=== PATIENT | female | born 2005 | race Two or more races ===

== ENCOUNTER 2024-10-24 14:58 | Outpatient (AMB) | payer MEDICAID, SELFPAY ==
[2024-10-24 15:13] VITALS: BP 119/80; PULSE 80; RESP 17; TEMP 36.2; O2SAT 97; BMI 35.6
--- NOTE | 2024-10-24 15:13 | OBCLNT_ITS ---
Vital Signs 10/24/24 15:13 Height 1.45 m Height Method Measured Weight 74.843 kg Weight Measurement Method Standing Scale BMI 35.6 BP 119/80 Blood Pressure Source Automatic Cuff Blood Pressure Location Right Upper Arm Position Sitting Respiration 17 Pulse 80 Pulse Source Monitor Temp 97.1 F Temp Source Temporal Artery Scan Pulse Oximetry (%) 97 Oxygen Delivery Method Room Air Allergies/Home Meds Allergies & Medications Allergies No Known Allergies Allergy (Verified 10/24/24 15:14) Medication Reconciliation vits no.126-ferrous fum 28 mg iron-folic acid 800 mcg tablet (Classic ) tab PO 10/24/24 [History Confirmed 10/24/24] Intake Visit Data Collection New Patient or Established: New Patient (never been to [facility]) Reason for Visit:: OBI Consent obtained for Telemed Visit: No Seen by Clinical Staff ONLY (RN/MA): No Part Time Receptionist Required: No Do You Feel Safe at Home: Yes Authorities Contacted: N/A PCP or OBGYN visit in last 3 months: No Hx Now: Yes Are you currently on any form of Control: No Pain Present Currently: No Pain Scale Used: Guthrie-Jha/Numerical Pain scale:: 0 Smoking Status Smoking Status: Never smoker Questionnaires Covid-19 Vaccine Questionnaire Has patient been vacinated for Covid-19 Have you been vacinated for Covid-19: No PHQ-9 PHQ-2 Over the last 2 weeks, how often have you been bothered by any of the following problems? 1. Little interest or pleasure in doing things: not at all 2. Feeling down, depressed, or hopeless: not at all Total score: 0 PHQ-9 3. Trouble falling or staying asleep, or sleeping too much: Not at all 4. Feeling tired or having little energy: Not at all 5. Poor appetite or overeating: Not at all 6. Feeling bad about yourself - or that you are a failure or have let yourself or your family down: Not at all 7. Trouble concentrating on things, such as reading the newspaper or watching television: Not at all 8. Moving or speaking so slowly that other people could have noticed? - Or the opposite - being so fidgety or restless that you have been moving around a lot more than usual: not at all 9. Thoughts that you would be better off or of hurting yourself in some way: Not at all Total score: 0 If you checked off any problems, how difficult have these problems made it for you to do your work, take care of things at home, or get along with other people?: not difficult at all Source: Developed by Drs. Irving Rothman, Flor Fair, Og Lee and colleagues, with an educational minh from [employer]. Social History Living Situation History Lives With: Children Housing: House Tobacco History Smoking Status: Never smoker Alcohol History Alcohol Intake: Never Domestic Abuse History Do You Feel Safe at Home: Yes History of Present Illness HPI Narrative 19-year-old 3 para 1 for OBI. Patient is a transfer of care from Dr. Calderon's at 33 weeks. Patient had wrong dates. Her last menstrual period March 24, 2025 and this gave due date December 30, 2024. Per [facility] ultrasound July 25 patient had a 19-week 6 ultrasound and this changed to due date to December 13, 2024. Patient denies social habits. Denies surgery. Denies chronic illness. Patient is O+, antibody screen negative, RPR nonreactive, rubella nonimmune, hepatitis B negative, hep C negative, HIV negative, GC and Chlamydia were negative. NIPT and AFP were negative. Carrier screen negative. 1 hour Glucola negative. Patient's hemoglobin was 12 and crit was 37. And her platelets 261. OB Initial Visit OB Flowsheet OB Flowsheet Initial Weight: Not Recorded Date -?-?-?-?-?-?-?-?-?-?-?-?- EGA Weight BP Alb Glu CTX Pres Fundal ht FHR Mov Dilation Station Effacement Hx Notes Visit Note 10/24/24 -?-?-?-?-?-?-?-?-?-?-?-?- 32w 6d 74.843 kg 119/80 absent cephalic 33 145 active 19-year-old 3 para 1 for OBI. Patient is a transfer from Dr. West's office with records. Her last period March 24, 2025. This gave a due date December 30, 2024. She had poor dates her first ultrasound was July 25, 2024 at 19 weeks 6 and this change her due date to December 13, 2024. Patient denies social habits. Denies surgery. Denies chronic illness. She denies leaking fluid denies bleeding denies contractions. Reports movement. Patient is O+, antibody screen negative, RPR nonreactive, rubella NI , hepatitis B negative, hep C negative, HIV negative, GC and Chlamydia were negative. Her 1 hour was negative. Her drug screen was normal. And her A1c was 5.3. NIPT AFP and carrier screens all negative. Sc hedule anatomy scan today. Patient declined Tdap. Discussed labor precautions. Kick counts twice daily. Increase fluids. Return in 2 weeks for GBS. And will do Pap 6 weeks Menstrual History Menstrual reliability: definite Flow: normal Menstrual regularity: regular Monthly: Yes Age at menarche: 11 On control pills at conception: No Date of positive home test: 05/06/24 OB History : 3 Para: 1 Hx # Pregnancies: 0 Hx Total # of Abortions (Spontaneous & Elective): 1 # of Living Children: 1 Delivery History 1st : Child's name: ARMAAN date: 07/13/19 sex: male Gestational age at delivery (weeks): 40 Delivery type: vaginal weight (lbs): 1814.369 g History of depression before or after : No Infection History & Risk Evaluation History of STDs: none HIV risk evaluation: low risk Hepatitis B risk evaluation: low risk Patient or partner has history of Genital Herpes: No Genetic Screening & History Genetic Screening/Teratology Counseling - Includes patient, baby's father, or anyone in either family with: 1. Patient's age 35 years or older as of estimated date of delivery: No 2. Thalassemia (Kuwaiti, Welsh, Mediterranean, or Background); MCV less than 80: No 3. Neural Tube Defect (Meningomyelocele, Spina Bifida, or Anencephaly): No 4. Congenital Heart Defect: No 5. Down Syndrome: No 6. Michael-Sachs (Ashkenazi Congregational, Cajun, Mauritian [place]): No 7. Germaine Disease (Ashkenazi Congregational): No 8. Familial Dysautonomia (Ashkenazi Congregational): No 9. Sickle Cell Disease or Trait (): No 10. Hemophilia or other blood disorders: No 11. Muscular Dystrophy: No 12. Cystic Fibrosis: No 13. [place]'s Chorea: No 14. Mental Retardation/Autism: No 15. Other inherited genetic or chromosomal disorder: No 16. Maternal Metabolic Disorder (EG,TYPE 1 Diabetes, PKU): No 17. Patient or baby's father had a child with defects not listed above: No 18. Recurrent loss or a stillbirth: No 19. Medications (including supplements, vitamins, herbs or otc drugs)/illicit/recreational drugs/alcohol since last menstrual period: No 20. Any other: No Infection History 1. Live with someone with TB or exposed to TB: No 2. Rash or viral illness since last menstrual period: No 3. Hepatitis B,C: No Other (see comments) Source: [employer] Review of Systems Review of Systems Systems Reviewed: All systems reviewed, normal except as documented Exam General Limitations: no limitations General Appearance: alert, in no apparent distress, comfortable, cooperative, healthy appearing, well developed and well groomed Head Head exam: atraumatic, normocephalic and normal inspection Chest Chest inspection: Present normal inspection and symmetric chest wall rise Resp Respiratory exam: Present normal lung sounds bilaterally Card Cardiovascular exam: Present regular rate, normal rhythm and normal heart sounds Abdominal Abdominal exam: Present soft and normal bowel sounds Psych Psychiatric exam: Present normal affect and normal mood Office Procedures OB Clinic LOC & Office Proc's Nursing/Assessment Patient Status: Initial/New Patient OB Clinic Nursing Assessment: Medication Reconciliation, Update PMH in EMR and Vital Signs OB Clinic Coordination of Care: Complex Care and Chronic Disease 1-5, Consent,records obtained, informed consent, Education Simp Pt/Fam and 4+ Authorizations needed Special Needs: Heart tones New Patient Charge New Patient Point Assignment: [id number] New Patient Point Charge: [employer]GE Level 4 ([id number]) Assessment & Plan Diagnosis / Problem List (1) Encounter for supervision of normal in multigravida in third trimester: Status: Acute Plan Pap 6 weeks . Schedule growth scan at maternal- medicine. Increase fluids. Continue prenatals. Discussed kick count twice a day. Reviewed labor precautions. Return in 2 weeks OB check. Additional Plan Follow Up: 2 Weeks (obc)
== END 2024-10-24 15:46 | disposition home or self-care (01) ==
LOC: HODSOBC 14:58
PROVIDERS: Supervising Provider Advanced Practice Midwife; Visit Provider Advanced Practice Midwife
DX: Z34.83 Encounter for supervision of other normal pregnancy, third trimester (principal); Z3A.32 32 weeks gestation of pregnancy; Z28.21 Immunization not carried out because of patient refusal
CPT/HCPCS: 99204; G0463

== ENCOUNTER 2024-11-10 13:29 | Outpatient (AMB) | payer MEDICAID, SELFPAY ==
[2024-11-10 14:05] VITALS: BP 124/72; PULSE 75; RESP 17; TEMP 36.3; O2SAT 98; BMI 36.6
--- NOTE | 2024-11-10 14:05 | AMB.OBVISIT ---
Vital Signs 11/10/24 14:05 Height 1.45 m Height Method Stated Weight 77.167 kg Weight Measurement Method Standing Scale BMI 36.6 BP 124/72 Blood Pressure Source Automatic Cuff Blood Pressure Location Right Upper Arm Position Sitting Respiration 17 Pulse 75 Pulse Source Monitor Temp 97.4 F Temp Source Temporal Artery Scan Pulse Oximetry (%) 98 Oxygen Delivery Method Room Air Allergies/Home Meds Allergies & Medications Allergies No Known Allergies Allergy (Verified 11/10/24 14:06) Medication Reconciliation vits no.126-ferrous fum 28 mg iron-folic acid 800 mcg tablet (Classic ) tab PO 10/24/24 [History Confirmed 11/10/24] Intake Visit Data Collection New Patient or Established: Established Patient (seen at [facility] within 3 years) Reason for Visit:: OBC 35W2D / GBS Seen by Clinical Staff ONLY (RN/MA): No Church Administrator Required: No Do You Feel Safe at Home: Yes Authorities Contacted: N/A PCP or OBGYN visit in last 3 months: Yes Date of Last PCP or OBGYN visit: 10/24/24 Hx Now: Yes Are you currently on any form of Control: No Pain Present Currently: No Pain Scale Used: Guthrie-Jha/Numerical Pain scale:: 0 Smoking Status Smoking Status: Never smoker Questionnaires Covid-19 Vaccine Questionnaire Has patient been vacinated for Covid-19 Have you been vacinated for Covid-19: No PHQ-9 PHQ-2 Over the last 2 weeks, how often have you been bothered by any of the following problems? 1. Little interest or pleasure in doing things: not at all 2. Feeling down, depressed, or hopeless: not at all Total score: 0 PHQ-9 3. Trouble falling or staying asleep, or sleeping too much: Not at all 4. Feeling tired or having little energy: Not at all 5. Poor appetite or overeating: Not at all 6. Feeling bad about yourself - or that you are a failure or have let yourself or your family down: Not at all 7. Trouble concentrating on things, such as reading the newspaper or watching television: Not at all 8. Moving or speaking so slowly that other people could have noticed? - Or the opposite - being so fidgety or restless that you have been moving around a lot more than usual: not at all 9. Thoughts that you would be better off or of hurting yourself in some way: Not at all Total score: 0 If you checked off any problems, how difficult have these problems made it for you to do your work, take care of things at home, or get along with other people?: not difficult at all Source: Developed by Drs. Irving Rothman, Flor Fair, Og Lee and colleagues, with an educational minh from [employer]. Depression screen completed yes Social History Living Situation History Marital Status: Lives With: Children Housing: House Tobacco History Smoking Status: Never smoker Second Hand Smoke Exposure: No Alcohol History Alcohol Intake: Never Domestic Abuse History Do You Feel Safe at Home: Yes Care OB Visit Log OB Flowsheet Initial Weight: Not Recorded Date <del>?</del> EGA Weight BP Alb Glu CTX Pres Fundal ht FHR Mov Dilation Station Effacement Hx Notes Visit Note 10/24/24 <del>?</del> 32w 6d 74.843 kg 119/80 absent cephalic 33 145 active 19-year-old 3 para 1 for OBI. Patient is a transfer from Dr. West's office with records. Her last period March 24, 2025. This gave a due date December 30, 2024. She had poor dates her first ultrasound was July 25, 2024 at 19 weeks 6 and this change her due date to December 13, 2024. Patient denies social habits. Denies surgery. Denies chronic illness. She denies leaking fluid denies bleeding denies contractions. Reports movement. Patient is O+, antibody screen negative, RPR nonreactive, rubella NI , hepatitis B negative, hep C negative, HIV negative, GC and Chlamydia were negative. Her 1 hour was negative. Her drug screen was normal. And her A1c was 5.3. NIPT AFP and carrier screens all negative. Schedule anatomy scan today. Patient declined Tdap. Discussed labor precautions. Kick counts twice daily. Increase fluids. Return in 2 weeks for GBS. And will do Pap 6 weeks 11/10/24 <del>?</del> 35w 2d 77.167 kg 124/72 absent cephalic 35 163 active No OB complaints. Fetus moving. Denies leaking, denies bleeding, denies contractions. GBS today. Discussed movement. Discussed kick count to be done twice a day. Increase fluids. Discussed signs symptoms of labor and ER precautions. Return in a week for OB check ANUM Calculator Estimated Delivery Date Method Current WG Current Estimate 12/13/24 Ultrasound #1 35w 2d Other Estimates 12/29/24 LMP (Certain) 33w 0d Notes Visit Date: 10/24/24 Last Updated by: Joanne Santiago CNM 19 yo . LMP 03/24/24. EDC12/30/24. OB sono; 07/25/24: 19w6. EDC: 12/13/24. wrong dates. O+,abs-, rpr;;nr, rub NI, hbsag-, hiv-, hc-, gc/ct-, 1hr gtt-, UT-, NIPT/AFP and carrier screen-, Office Procedures OB Clinic LOC & Office Proc's Nursing/Assessment Patient Status: Established Patient OB Clinic Nursing Assessment: Medication Reconciliation, Update PMH in EMR and Vital Signs OB Clinic Coordination of Care: Complex Care and Chronic Disease 1-5, Consent,records obtained, informed consent, Education Simp Pt/Fam, Lab and Imaging orders and Staff clarify orders Special Needs: Heart tones Miscellaneous Interventions: Culture Specimen Collection Established Patient Charge Established Patient Point Assignment: 145 Established Patient Point Charge: EP Level 4 (120-155) Assessment & Plan Diagnosis / Problem List (1) Encounter for supervision of high risk in third trimester, antepartum: Status: Acute Plan GBS today. Discussed labor precautions. Discussed ER precautions and parameters. Disc david kick count twice a day. Increase fluids. Return a week OB check Additional Plan Follow Up: 1 Week (obc)
== END 2024-11-10 14:45 | disposition home or self-care (01) ==
LOC: HODSOBC 13:29
PROVIDERS: Supervising Provider Advanced Practice Midwife; Visit Provider Advanced Practice Midwife
DX: O09.93 Supervision of high risk pregnancy, unspecified, third trimester (principal); Z3A.35 35 weeks gestation of pregnancy; Z36.85 Encounter for antenatal screening for Streptococcus B
CPT/HCPCS: 99214; G0463

== ENCOUNTER 2024-11-22 13:01 | Outpatient (AMB) | payer MEDICAID, SELFPAY ==
--- NOTE | 2024-11-22 13:20 | OBCLNT_ITS ---
Vital Signs 11/22/24 13:21 Height 1.45 m Height Method Measured Weight 78.131 kg Weight Measurement Method Standing Scale BMI 37.1 BP 123/80 Blood Pressure Source Automatic Cuff Blood Pressure Location Right Upper Arm Position Sitting Respiration 17 Pulse 86 Pulse Source Monitor Temp 97.7 F Temp Source Temporal Artery Scan Pulse Oximetry (%) 96 Oxygen Delivery Method Room Air Allergies/Home Meds Allergies & Medications Allergies No Known Allergies Allergy (Verified 11/22/24 13:21) Medication Reconciliation vits no.126-ferrous fum 28 mg iron-folic acid 800 mcg tablet (Classic ) tab PO 10/24/24 [History Confirmed 11/22/24] Intake Visit Data Collection New Patient or Established: Established Patient (seen at [facility] within 3 years) Reason for Visit:: OBC Consent obtained for Telemed Visit: No Seen by Clinical Staff ONLY (RN/MA): No Producer Director Required: No Do You Feel Safe at Home: Yes Authorities Contacted: N/A PCP or OBGYN visit in last 3 months: Yes Date of Last PCP or OBGYN visit: 11/10/24 Hx Now: Yes Are you currently on any form of Control: No Pain Present Currently: No Pain Scale Used: Guthrie-Jha/Numerical Pain scale:: 0 Smoking Status Smoking Status: Never smoker Questionnaires Covid-19 Vaccine Questionnaire Has patient been vacinated for Covid-19 Have you been vacinated for Covid-19: No PHQ-9 PHQ-2 Over the last 2 weeks, how often have you been bothered by any of the following problems? 1. Little interest or pleasure in doing things: not at all PHQ-9 8. Moving or speaking so slowly that other people could have noticed? - Or the opposite - being so fidgety or restless that you have been moving around a lot more than usual: not at all Source: Developed by Drs. Irving Rothman, Flor Fair, Og Lee and colleagues, with an educational minh from [employer]. Social History Living Situation History Lives With: Children Housing: House Tobacco History Smoking Status: Never smoker Second Hand Smoke Exposure: No Alcohol History Alcohol Intake: Never Domestic Abuse History Do You Feel Safe at Home: Yes Care OB Visit Log OB Flowsheet Initial Weight: Not Recorded Date -?-?-?-?-?-?-?-?-?-?-?-?- EGA Weight BP Alb Glu CTX Pres Fundal ht FHR Mov Dilation Station Effacement Hx Notes Visit Note 10/24/24 -?-?-?-?-?-?-?-?-?-?-?-?- 32w 6d 74.843 kg 119/80 absent cephalic 33 145 active 19-year-old 3 para 1 for OBI. Patient is a transfer from Dr. West's office with records. Her last period March 24, 2025. This gave a due date December 30, 2024. She had poor dates her first ultrasound was July 25, 2024 at 19 weeks 6 and this change her due date to December 13, 2024. Patient denies social habits. Denies surgery. Denies chronic illness. She denies leaking fluid denies blee ding denies contractions. Reports movement. Patient is O+, antibody screen negative, RPR nonreactive, rubella NI , hepatitis B negative, hep C negative, HIV negative, GC and Chlamydia were negative. Her 1 hour was negative. Her drug screen was normal. And her A1c was 5.3. NIPT AFP and carrier screens all negative. Sc hedule anatomy scan today. Patient declined Tdap. Discussed labor precautions. Kick counts twice daily. Increase fluids. Return in 2 weeks for GBS. And will do Pap 6 weeks 11/10/24 -?-?-?-?-?-?-?-?-?-?-?-?- 35w 2d 77.167 kg 124/72 absent cephalic 35 163 active No OB complaints. Fetus moving. Denies leaking, denies bleeding, denies contractions. GBS today. Discussed movement. Discussed kick count to be done twice a day. Increase fluids. Discussed signs symptoms of labor and ER precautions. Return in a week for OB check 11/22/24 -?-?-?-?-?-?-?-?-?-?-?-?- 37w 0d 78.131 kg 123/80 absent cephalic 36 156 active Doing well. No OB complaints. Reports good movement. Denies leaking, denies contractions, denies bleeding. Discussed posit sofie GBS and treatment. Discussed labor pop precautions. Discussed kick count twice a day. Increase fluids. Return in a week OB check ANUM Calculator Estimated Delivery Date Method Current WG Current Estimate 12/13/24 Ultrasound #1 37w 0d Other Estimates 12/29/24 LMP (Certain) 34w 5d Notes Visit Date: 11/22/24 Last Updated by: Joanne Santiago CNM GBS+on 11/22 Visit Date: 10/24/24 Last Updated by: Joanne Santiago CNM 19 yo . LMP 03/24/24. EDC12/30/24. OB sono; 07/25/24: 19w6. EDC: 12/13/24. wrong dates. O+,abs-, rpr;;nr, rub NI, hbsag-, hiv-, hc-, gc/ct-, 1hr gtt-, UT-, NIPT/AFP and carrier screen-, Office Procedures OB Clinic LOC & Office Proc's Nursing/Assessment Patient Status: Established Patient OB Clinic Nursing Assessment: Medication Reconciliation, Update PMH in EMR and V ital Signs OB Clinic Coordination of Care: Complex Care and Chronic Disease 1-5, Consent,records obtained, informed consent, 4+ Authorizations needed, Lab and Imaging orders and Results/Orders obtained Special Needs: Heart tones Established Patient Charge Established Patient Point Assignment: 135 Established Patient Point Charge: EP Level 4 (120-155) Assessment & Plan Diagnosis / Problem List (1) Encounter for supervision of high risk in third trimester, antepartum: Status: Acute Plan Discussed positive treat GBS and treatment. Discussed labor precautions kick count twice a day. Increase fluids. Return in a week OB check Additional Plan Follow Up: 1 Week (obc)
[2024-11-22 13:21] VITALS: BP 123/80; PULSE 86; RESP 17; TEMP 36.5; O2SAT 96; BMI 37.1
== END 2024-11-22 13:41 | disposition home or self-care (01) ==
LOC: HODSOBC 13:01
PROVIDERS: Supervising Provider Advanced Practice Midwife; Visit Provider Advanced Practice Midwife
DX: O09.893 Supervision of other high risk pregnancies, third trimester (principal); O99.820 Streptococcus B carrier state complicating pregnancy; Z3A.37 37 weeks gestation of pregnancy
CPT/HCPCS: 99214; G0463

== ENCOUNTER 2024-11-27 15:26 | Outpatient (AMB) | payer MEDICAID, SELFPAY ==
[2024-11-27 15:49] VITALS: BP 131/84; PULSE 66; RESP 14; TEMP 35.8; O2SAT 98; BMI 37.4
--- NOTE | 2024-11-27 15:49 | OBCLNT_ITS ---
Vital Signs 11/27/24 15:49 Height 1.45 m Height Method Stated Weight 78.698 kg Weight Measurement Method Standing Scale BMI 37.4 BP 131/84 H Blood Pressure Source Automatic Cuff Blood Pressure Location Left Upper Arm Position Sitting Respiration 14 Pulse 66 Pulse Source Monitor Temp 96.4 F L Temp Source Oral Pulse Oximetry (%) 98 Oxygen Delivery Method Room Air Allergies/Home Meds Allergies & Medications Allergies No Known Allergies Allergy (Verified 11/27/24 15:50) Medication Reconciliation vits no.126-ferrous fum 28 mg iron-folic acid 800 mcg tablet (Classic ) tab PO 10/24/24 [History Confirmed 11/27/24] Intake Visit Data Collection New Patient or Established: Established Patient (seen at [facility] within 3 years) Reason for Visit:: CARE Seen by Clinical Staff ONLY (RN/MA): No Silk Screen Painter Required: No Do You Feel Safe at Home: Yes Authorities Contacted: N/A PCP or OBGYN visit in last 3 months: Yes Hx Now: Yes Are you currently on any form of Control: No Pain Present Currently: No Pain Scale Used: Guthrie-Jha/Numerical Pain scale:: 0 Smoking Status Smoking Status: Never smoker Questionnaires Covid-19 Vaccine Questionnaire Has patient been vacinated for Covid-19 Have you been vacinated for Covid-19: No PHQ-9 PHQ-2 Over the last 2 weeks, how often have you been bothered by any of the following problems? 1. Little interest or pleasure in doing things: not at all 2. Feeling down, depressed, or hopeless: not at all Total score: 0 PHQ-9 3. Trouble falling or staying asleep, or sleeping too much: Not at all 4. Feeling tired or having little energy: Not at all 5. Poor appetite or overeating: Not at all 6. Feeling bad about yourself - or that you are a failure or have let yourself or your family down: Not at all 7. Trouble concentrating on things, such as reading the newspaper or watching television: Not at all 8. Moving or speaking so slowly that other people could have noticed? - Or the opposite - being so fidgety or restless that you have been moving around a lot more than usual: not at all 9. Thoughts that you would be better off or of hurting yourself in some way: Not at all Total score: 0 Source: Developed by Drs. Irving Rothman, Flor Fair, Og Lee and colleagues, with an educational minh from [employer]. Depression screen completed yes Social History Living Situation History Lives With: Children Housing: House Tobacco History Smoking Status: Never smoker Second Hand Smoke Exposure: No Alcohol History Alcohol Intake: Never Domestic Abuse History Do You Feel Safe at Home: Yes Care OB Visit Log OB Flowsheet Initial Weight: Not Recorded Date -?-?-?-?-?-?-?-?-?-?-?-?- EGA Weight BP Alb Glu CTX Pres Fundal ht FHR Mov Dilation Station Effacement Hx Notes Visit Note 10/24/24 -?-?-?-?-?-?-?-?-?-?-?-?- 32w 6d 74.843 kg 119/80 absent cephalic 33 145 active 19-year-old 3 para 1 for OBI. Patient is a transfer from Dr. West's office with records. Her last period March 24, 2025. This gave a due date December 30, 2024. She had poor dates her first ultrasound was July 25, 2024 at 19 weeks 6 and this change her due date to December 13, 2024. Patient denies social habits. Denies surgery. Denies chronic illness. She denies leaking fluid denies bleeding denies contractions. Reports movement. Patient is O+, antibody screen negative, RPR nonreactive, rubella NI , hepatitis B negative, hep C negative, HIV negative, GC and Chlamydia were negative. Her 1 hour was negative. Her drug screen was normal. And her A1c was 5.3. NIPT AFP and carrier screens all negative. Sc hedule anatomy scan today. Patient declined Tdap. Discussed labor precautions. Kick counts twice daily. Increase fluids. Return in 2 weeks for GBS. And will do Pap 6 weeks 11/10/24 -?-?-?-?-?-?-?-?-?-?-?-?- 35w 2d 77.167 kg 124/72 absent cephalic 35 163 active No OB complaints. Fetus moving. Denies leaking, denies bleeding, denies contractions. GBS today. Discussed movement. Discussed kick count to be done twice a day. Increase fluids. Discussed signs symptoms of labor and ER precautions. Return in a week for OB check 11/22/24 -?-?-?-?-?-?-?-?-?-?-?-?- 37w 0d 78.131 kg 123/80 absent cephalic 36 156 active Doing well. No OB complaints. Reports good movement. Denies leaking, denies contractions, denies bleeding. Discussed posit sofie GBS and treatment. Discussed labor pop precautions. Discussed kick count twice a day. Increase fluids. Return in a week OB check 11/27/24 -?-?-?-?-?-?-?-?-?-?-?-?- 37w 5d 78.698 kg 131/84 occasional cephalic 37 140 active Denies PIH complaints. Reports good movement. Denies leaking, denies bleeding, increased pressure and occasional contraction, ua dip neg for protien,blood, nitrites Discussed PIH si gns and symptoms. Discussed kick count twice a day. Increase fluids. No salt. Patient to labor and delivery for PIH workup and return in a week for OB check ANUM Calculator Estimated Delivery Date Method Current WG Current Estimate 12/13/24 Ultrasound #1 37w 5d Other Estimates 12/29/24 LMP (Certain) 35w 3d 12/14/24 Ultrasound #2 37w 4d Notes Visit Date: 11/27/24 Last Updated by: Joanne Santiago CNM sono 10/09/24: 30w4: edc: 12/14/24 Visit Date: 11/22/24 Last Updated by: Joanne Santiago CNM GBS+on 11/22 Visit Date: 10/24/24 Last Updated by: Joanne Santiago CNM 19 yo . LMP 03/24/24. EDC12/30/24. OB sono; 07/25/24: 19w6. EDC: 12/13/24. wrong dates. O+,abs-, rpr;;nr, rub NI, hbsag-, hiv-, hc-, gc/ct-, 1hr gtt-, UT-, NIPT/AFP and carrier screen-, Office Procedures OB Clinic LOC & Office Proc's Nursing/Assessment Patient Status: Established Patient OB Clinic Nursing Assessment: Medication Reconciliation, Update PMH in EMR and Vital Signs OB Clinic Coordination of Care: Complex Care and Chronic Disease 1-5, Consent,records obtained, informed consent, Education Simp Pt/Fam, 1 Ins Authorization, Lab and Imaging orders, Results/Orders obtained and Staff clarify orders Special Needs: Heart tones Miscellaneous Interventions: Blood/Urine Collection Established Patient Charge Established Patient Point Assignment: 180 Established Patient Point Charge: EP Level 5 (160-above) Assessment & Plan Diagnosis / Problem List (1) Encounter for supervision of high risk in third trimester, antepartum: Status: Acute Plan Discussed PIH signs and symptoms. Discussed labor precautions and kick count. Reviewed signs symptoms of preeclampsia with patient. Patient to labor and delivery for PIH workup return in a week OB check Additional Plan Follow Up: 1 Week (obc)
== END 2024-11-27 16:20 | disposition home or self-care (01) ==
LOC: HODSOBC 15:26
PROVIDERS: Supervising Provider Advanced Practice Midwife; Visit Provider Advanced Practice Midwife
DX: O09.93 Supervision of high risk pregnancy, unspecified, third trimester (principal); Z3A.37 37 weeks gestation of pregnancy
CPT/HCPCS: 99214; 99215; G0463

== ENCOUNTER 2024-11-27 16:59 | Outpatient (CLI) | payer MEDICAID, SELFPAY ==
[2024-11-27] VITALS (12 sets, daily range): BP systolic 105–135; BP diastolic 62–89; PULSE 53–85; RESP 18–99; TEMP 37.1; O2SAT 98–99; BMI 33.7
--- NOTE | 2024-11-27 17:07 | XR_ITS ---
Examination: Biophysical profile, ultrasound Date and time of exam: November 27, 2024, 1728 hours INDICATIONS: -induced hypertension today Technique: Multiple transabdominal sonographic images of the pelvis abdomen obtained. Attention is directed to the breathing movement, gross body movement, amniotic fluid volume and tone. Findings: Amniotic fluid index 15.2 cm Total biophysical profile is 8 of 8. breathing movement is 2. Gross body movement is 2. tone is 2. Qualitative amniotic fluid volume is 2 Impression: Biophysical profile is 8 of 8.
[2024-11-27 19:00] LABS: Basophils # (Auto) 0.0 Thou/mm3 (0.0-0.2); Basophils % (Auto) 0 % (0-2.5); Eosinophils # (Auto) 0.1 Thou/mm3 (0.0-0.5); Eosinophils % (Auto) 1 % (0-10); Hematocrit 37.0 % (36.0-46.0); Hemoglobin 12.6 g/dL (12.0-16.0); Immature Granulocytes Auto 0.05 Thou/mm3 (0.00-0.00); Lymphocytes # (Auto) 2.0 Thou/mm3 (1.0-4.8); Lymphocytes % (Auto) 19 % (10-50); Mean Corpuscular HGB Conc 34.1 g/dl (31.0-37.0); Mean Corpuscular Hemoglobin 28.1 pg (25.0-35.0); Mean Corpuscular Volume 82 fL (80-100); Monocytes # (Auto) 0.6 Thou/mm3 (0.0-0.8); Monocytes % (Auto) 5 % (0-12); Neutrophils # (Auto) 7.9 Thou/mm3 (1.8-7.7); Neutrophils % (Auto) 75 % (37-80); Nucleated Red Blood Cell # 0.00 Thou/mm3 (0.00-0.00); Nucleated Red Blood Cell % 0 /100 WBC (0); Platelet Count 218 Thou/mm3 (140-440); RDW Standard Deviation 38.8 fL (36.4-46.3); Red Blood Count 4.49 Miln/mm3 (4.00-5.20); White Blood Count 10.6 Thou/mm3 (3.6-11.0)
[2024-11-27 19:01] LABS: Collection Type, Urine Clean Catch
[2024-11-27 19:05] LABS: Bilirubin,Urine Negative (Negative); Blood,Urine Negative (Negative); Clarity,Urine Clear (Clear/Hazy); Color,Urine Yellow (Lt Yel-Yel); Glucose, Urine Negative (Negative); Ketones,Urine Negative (Negative); Leukocyte Esterase,Urine Negative (Negative); Nitrite,Urine Negative (Negative); PH,Urine 6.0 (5.0-7.0); Protein,Urine Negative (Neg - Trace); RBC,Urine 1 /hpf (0-3); Specific Gravity,Urine 1.019 (1.001-1.035); Squamous Epithelial Cell,Urine 5 /hpf (0-5); Urobilinogen,Urine Negative mg/dL (0.0-1.0); WBC,Urine 1 /hpf (0-5)
[2024-11-27 19:18] LABS: INR 0.9 (0.9-1.3); Partial Thromboplastin Time 26.2 Seconds (22.0-36.0); Prothrombin Time 10.3 Seconds (9.0-12.2)
[2024-11-27 19:44] LABS: Fibrinogen 693 mg/dL (175-375)
[2024-11-27 19:49] LABS: Alanine Aminotransferase 20 U/L (10-49); Albumin, Serum 4.1 gm/dL (3.5-5.0); Albumin/Globulin Ratio 1.5 (1.2-2.2); Alkaline Phosphatase 218 U/L (46-116); Anion Gap 12 (7-16); Aspartate Amino Transferase 76 U/L (0-34); BUN/Creatinine Ratio 13 Ratio (12-20); Bilirubin,Total 0.4 mg/dL (0.3-1.2); Blood Urea Nitrogen 8 mg/dL (9-23); Calcium 9.4 mg/dL (8.3-10.6); Calcium (Corrected) 9.4 mg/dL (8.5-10.1); Carbon Dioxide 20.9 mMol/L (20.0-31.0); Chloride 104 mMol/L (98-107); Creatinine (Component) 0.6 mg/dL (0.6-1.3); Estimated Creatinine Clearance 138.0 mL/min (>60); Globulin 2.7 gm/dL (2.3-3.5); Glucose 73 mg/dL (74-106); LDH (Lactate Dehydrogenase) 221 U/L (120-246); Osmolality,Calculated 271 (275-295); Potassium 4.4 mMol/L (3.4-5.1); Sodium 137 mMol/L (136-145); Total Protein 6.8 gm/dL (5.7-8.2); Uric Acid 5.6 mg/dL (3.1-7.8); eGFR > 60 See Note
== END 2024-11-27 20:19 | disposition home or self-care (01) ==
LOC: CNST 17:01 → S4SX 17:01
PROVIDERS: Advanced Practice Midwife; Referring Provider Obstetrics & Gynecology; Visit Provider Obstetrics & Gynecology
DX: Z34.83 Encounter for supervision of other normal pregnancy, third trimester (principal); Z36.89 Encounter for other specified antenatal screening; Z3A.37 37 weeks gestation of pregnancy
CPT/HCPCS: 36415; 59025; 76819; 80053; 81001; 83615; 84550; 85025; 85384; 85610; 85730

== ENCOUNTER 2024-11-29 18:39 | Observation (INO) | payer MEDICAID, SELFPAY ==
[2024-11-29] VITALS (16 sets, daily range): BP systolic 0–143; BP diastolic 0–97; PULSE 53–75; RESP 16–99; TEMP 37.1; BMI 36.6
--- NOTE | 2024-11-29 18:39 | XR_ITS ---
Examination: Biophysical profile, ultrasound Date and time of exam: November 29, 2024, 1859 hours INDICATIONS: -induced hypertension today Technique: Multiple transabdominal sonographic images of the pelvis abdomen obtained. Attention is directed to the breathing movement, gross body movement, amniotic fluid volume and tone. Findings: Amniotic fluid index 12.7 cm Total biophysical profile is 8 of 8. breathing movement is 2. Gross body movement is 2. tone is 2. Qualitative amniotic fluid volume is 2 Impression: Biophysical profile is 8 of 8.
--- NOTE | 2024-11-29 18:40 | XR_ITS ---
Examination: Complete OB ultrasound greater than 14 weeks Date and time of exam: November 29, 2024, 1839 hours INDICATIONS: -induced hypertension today Findings: Viable intrauterine single fetus with single amniotic sac presentation cephalic Cardiac motion 133 BPM Placenta anterior grade 3 Umbilical cord insertion seen. Amniotic fluid index 15.6 cm spine maternal right Cervix 3.7 cm Ovaries obscured by bowel gas. Composite estimated gestational age based on BPD, head circumference, abdominal circumference, femur length is 34 weeks 4 days Estimated weight 2402 g. Survey of intracranial anatomy, spinal anatomy, abdominal anatomy, four-chamber heart performed with no abnormalities identified. Impression: Viable intrauterine gestation cephalic presentation.
[2024-11-29 19:54] LABS: Collection Type, Urine Clean Catch; RBC,Urine 0 /hpf (0-3); WBC,Urine 0 /hpf (0-5)
[2024-11-29 20:13] LABS: Basophils # (Auto) 0.0 Thou/mm3 (0.0-0.2); Basophils % (Auto) 0 % (0-2.5); Eosinophils # (Auto) 0.1 Thou/mm3 (0.0-0.5); Eosinophils % (Auto) 1 % (0-10); Hematocrit 35.1 % (36.0-46.0); Hemoglobin 12.0 g/dL (12.0-16.0); Immature Granulocytes Auto 0.06 Thou/mm3 (0.00-0.00); Lymphocytes # (Auto) 1.9 Thou/mm3 (1.0-4.8); Lymphocytes % (Auto) 20 % (10-50); Mean Corpuscular HGB Conc 34.2 g/dl (31.0-37.0); Mean Corpuscular Hemoglobin 28.0 pg (25.0-35.0); Mean Corpuscular Volume 82 fL (80-100); Monocytes # (Auto) 0.6 Thou/mm3 (0.0-0.8); Monocytes % (Auto) 7 % (0-12); Neutrophils # (Auto) 6.8 Thou/mm3 (1.8-7.7); Neutrophils % (Auto) 72 % (37-80); Nucleated Red Blood Cell # 0.00 Thou/mm3 (0.00-0.00); Nucleated Red Blood Cell % 0 /100 WBC (0); Platelet Count 210 Thou/mm3 (140-440); RDW Standard Deviation 38.4 fL (36.4-46.3); Red Blood Count 4.29 Miln/mm3 (4.00-5.20); White Blood Count 9.5 Thou/mm3 (3.6-11.0)
[2024-11-29 20:16] LABS: Alanine Aminotransferase 19 U/L (10-49); Albumin, Serum 3.8 gm/dL (3.5-5.0); Albumin/Globulin Ratio 1.5 (1.2-2.2); Alkaline Phosphatase 225 U/L (46-116); Anion Gap 11 (7-16); Aspartate Amino Transferase 74 U/L (0-34); BUN/Creatinine Ratio 15 Ratio (12-20); Bilirubin,Total 0.3 mg/dL (0.3-1.2); Blood Urea Nitrogen 9 mg/dL (9-23); Calcium 9.2 mg/dL (8.3-10.6); Calcium (Corrected) 9.4 mg/dL (8.5-10.1); Carbon Dioxide 21.5 mMol/L (20.0-31.0); Chloride 106 mMol/L (98-107); Creatinine (Component) 0.6 mg/dL (0.6-1.3); Estimated Creatinine Clearance 131.8 mL/min (>60); Globulin 2.6 gm/dL (2.3-3.5); Glucose 111 mg/dL (74-106); LDH (Lactate Dehydrogenase) 182 U/L (120-246); Osmolality,Calculated 275 (275-295); Potassium 4.0 mMol/L (3.4-5.1); Sodium 138 mMol/L (136-145); Total Protein 6.4 gm/dL (5.7-8.2); Uric Acid 5.1 mg/dL (3.1-7.8); eGFR > 60 See Note
[2024-11-29 20:30] LABS: Bacteria,Urine Rare; Bilirubin,Urine Negative (Negative); Blood,Urine Negative (Negative); Clarity,Urine Clear (Clear/Hazy); Color,Urine Yellow (Lt Yel-Yel); Glucose, Urine Negative (Negative); Ketones,Urine Negative (Negative); Leukocyte Esterase,Urine Negative (Negative); Nitrite,Urine Negative (Negative); PH,Urine 6.0 (5.0-7.0); Protein,Urine Negative (Neg - Trace); Specific Gravity,Urine 1.021 (1.001-1.035); Squamous Epithelial Cell,Urine 5 /hpf (0-5); Urobilinogen,Urine Negative mg/dL (0.0-1.0)
[2024-11-29 20:36] LABS: Fibrinogen 589 mg/dL (175-375); INR 0.9 (0.9-1.3); Partial Thromboplastin Time 26.0 Seconds (22.0-36.0); Prothrombin Time 10.2 Seconds (9.0-12.2)
== END 2024-11-29 23:05 | disposition home or self-care (01) ==
LOC: S4S1 20:43 → S4SX 20:43
PROVIDERS: Admitting Provider Advanced Practice Midwife; Referring Provider Advanced Practice Midwife; Visit Provider Advanced Practice Midwife
DX: O16.3 Unspecified maternal hypertension, third trimester (principal); Z3A.34 34 weeks gestation of pregnancy
CPT/HCPCS: 36415; 59025; 59899; 76805; 76819; 80053; 81001; 83615; 84550; 85025; 85384; 85610; 85730

== ENCOUNTER 2024-12-05 15:45 | Outpatient (AMB) | payer MEDICAID, SELFPAY ==
[2024-12-05 15:43] VITALS: BP 124/83; PULSE 67; RESP 16; TEMP 36.7; O2SAT 97; BMI 33.8
--- NOTE | 2024-12-05 15:43 | OBCLNT_ITS ---
Vital Signs 12/05/24 15:43 Height 1.52 m Height Method Stated Weight 78.642 kg Weight Measurement Method Standing Scale BMI 33.8 BP 124/83 Blood Pressure Source Automatic Cuff Blood Pressure Location Left Upper Arm Position Sitting Respiration 16 Pulse 67 Pulse Source Monitor Temp 98.1 F Temp Source Oral Pulse Oximetry (%) 97 Oxygen Delivery Method Room Air Allergies/Home Meds Allergies & Medications Allergies No Known Allergies Allergy (Verified 12/05/24 15:55) Medication Reconciliation vits no.126-ferrous fum 28 mg iron-folic acid 800 mcg tablet (Classic ) 1 tab PO .QD 10/24/24 [History Confirmed 12/05/24] Intake Visit Data Collection New Patient or Established: Established Patient (seen at [facility] within 3 years) Reason for Visit:: CARE Seen by Clinical Staff ONLY (RN/MA): No Motor Builder 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 1. Little interest or pleasure in doing things: not at all 2. Feeling down, depressed, or hopeless: not at all Total score: 0 PHQ-9 3. Trouble falling or staying asleep, or sleeping too much: Not at all 4. Feeling tired or having little energy: Not at all 5. Poor appetite or overeating: Not at all 6. Feeling bad about yourself - or that you are a failure or have let yourself or your family down: Not at all 7. Trouble concentrating on things, such as reading the newspaper or watching television: Not at all 8. Moving or speaking so slowly that other people could have noticed? - Or the opposite - being so fidgety or restless that you have been moving around a lot more than usual: not at all 9. Thoughts that you would be better off or of hurting yourself in some way: Not at all Total score: 0 Source: Developed by Drs. Irving Rothman, Flor Fair, Og Lee and colleagues, with an educational minh from [employer]. Depression screen completed yes Social History Living Situation History Lives With: Children Housing: House Tobacco History Smoking Status: Never smoker Second Hand Smoke Exposure: No Alcohol History Alcohol Intake: Never Domestic Abuse History Do You Feel Safe at Home: Yes Care OB Visit Log OB Flowsheet Initial Weight: Not Recorded Date -?-?-?-?-?-?-?-?-?-?-?-?- EGA Weight BP Alb Glu CTX Pres Fundal ht FHR Mov Dilation Station Effacement Hx Notes Visit Note 10/24/24 -?-?-?-?-?-?-?-?-?-?-?-?- 32w 6d 74.843 kg 119/80 absent cephalic 33 145 active 19-year-old 3 para 1 for OBI. Patient is a transfer from Dr. West's office with records. Her last period March 24, 2025. This gave a due date December 30, 2024. She had poor dates her first ultrasound was July 25, 2024 at 19 weeks 6 and this change her due date to December 13, 2024. Patient denies social habits. Denies surgery. Denies chronic illness. She denies leaking fluid denies bleeding denies contractions. Reports movement. Patient is O+, antibody screen negative, RPR nonreactive, rubella NI , hepatitis B negative, hep C negative, HIV negative, GC and Chlamydia were negative. Her 1 hour was negative. Her drug screen was normal. And her A1c was 5.3. NIPT AFP and carrier screens all negative. Sc hedule anatomy scan today. Patient declined Tdap. Discussed labor precautions. Kick counts twice daily. Increase fluids. Return in 2 weeks for GBS. And will do Pap 6 weeks 11/10/24 -?-?-?-?-?-?-?-?-?-?-?-?- 35w 2d 77.167 kg 124/72 absent cephalic 35 163 active No OB complaints. Fetus moving. Denies leaking, denies bleeding, denies contractions. GBS today. Discussed movement. Discussed kick count to be done twice a day. Increase fluids. Discussed signs symptoms of labor and ER precautions. Return in a week for OB check 11/22/24 -?-?-?-?-?-?-?-?-?-?-?-?- 37w 0d 78.131 kg 123/80 absent cephalic 36 156 active Doing well. No OB complaints. Reports good movement. Denies leaking, denies contractions, denies bleeding. Discussed posit sofie GBS and treatment. Discussed labor pop precautions. Discussed kick count twice a day. Increase fluids. Return in a week OB check 11/27/24 -?-?-?-?-?-?-?-?-?-?-?-?- 37w 5d 78.698 kg 131/84 occasional cephalic 37 140 active Denies PIH complaints. Reports good movement. Denies leaking, denies bleeding, increased pressure and occasional contraction, ua dip neg for protien,blood, nitrites Discussed PIH si gns and symptoms. Discussed kick count twice a day. Increase fluids. No salt. Patient to labor and delivery for PIH workup and return in a week for OB check 12/05/24 -?-?-?-?-?-?-?-?-?-?-?-?- 38w 6d 78.642 kg 124/83 occasional cephalic 38 130 active Occasional contraction. Increased pressure. Reports good movement. Denies leaking or bleeding. Patient is GBS positive. Discussed GBS positive. Discussed labor precautions and kick count. Increase fluids. Continue prenatals. Return a week OB check ANUM Calculator Estimated Delivery Date Method Current WG Current Estimate 12/13/24 Ultrasound #1 38w 6d Other Estimates 12/29/24 LMP (Certain) 36w 4d 12/14/24 Ultrasound #2 38w 5d Notes Visit Date: 11/27/24 Last Updated by: Joanne Santiago CNM sono 10/09/24: 30w4: edc: 12/14/24 Visit Date: 11/22/24 Last Updated by: Joanne Santiago CNM GBS+on 11/22 Visit Date: 10/24/24 Last Updated by: Joanne Santiago CNM 19 yo . LMP 03/24/24. EDC12/30/24. OB sono; 07/25/24: 19w6. EDC: 12/13/24. wrong dates. O+,abs-, rpr;;nr, rub NI, hbsag-, hiv-, hc-, gc/ct-, 1hr gtt-, UT-, NIPT/AFP and carrier screen-, Office Procedures OB Clinic LOC & Office Proc's Nursing/Assessment Patient Status: Established Patient OB Clinic Nursing Assessment: Medication Reconciliation, Update PMH in EMR and Vital Signs OB Clinic Coordination of Care: Complex Care and Chronic Disease 1-5, Consent,records obtained, informed consent, Education Simp Pt/Fam, Lab and Imaging orders, Results/Orders obtained and Staff clarify orders Special Needs: Heart tones Established Patient Charge Established Patient Point Assignment: 135 Established Patient Point Charge: EP Level 4 (120-155) Assessment & Plan Diagnosis / Problem List (1) Encounter for supervision of high risk in third trimester, antepartum: Status: Acute Plan discuss labor precaution, fkc bif, discuss danger s/s and ER precaution, rtc 1 week onc Additional Plan Follow Up: 1 Week (obc)
== END 2024-12-05 16:08 | disposition home or self-care (01) ==
PROVIDERS: Supervising Provider Advanced Practice Midwife; Visit Provider Advanced Practice Midwife
DX: O09.893 Supervision of other high risk pregnancies, third trimester (principal); O99.820 Streptococcus B carrier state complicating pregnancy; Z3A.38 38 weeks gestation of pregnancy
CPT/HCPCS: 99214; G0463

== ENCOUNTER 2024-12-18 09:04 | Outpatient (AMB) | payer MEDICAID, SELFPAY ==
[2024-12-18 09:09] VITALS: BP 131/84; PULSE 78; RESP 16; TEMP 36.2; O2SAT 98; BMI 34.6
--- NOTE | 2024-12-18 09:09 | OBCLNT_ITS ---
Vital Signs 12/18/24 09:09 Height 1.52 m Height Method Stated Weight 80.002 kg Weight Measurement Method Standing Scale BMI 34.6 BP 131/84 H Blood Pressure Source Automatic Cuff Blood Pressure Location Left Upper Arm Position Sitting Respiration 16 Pulse 78 Pulse Source Monitor Temp 97.2 F Temp Source Oral Pulse Oximetry (%) 98 Oxygen Delivery Method Room Air Allergies/Home Meds Allergies & Medications Allergies No Known Allergies Allergy (Verified 12/18/24 09:10) Medication Reconciliation vits no.126-ferrous fum 28 mg iron-folic acid 800 mcg tablet (Classic ) 1 tab PO .QD 10/24/24 [History Confirmed 12/18/24] Intake Visit Data Collection New Patient or Established: Established Patient (seen at [facility] within 3 years) Reason for Visit:: OBC WEEKLY 40 WEEKS Seen by Clinical Staff ONLY (RN/MA): No Floor Coverings 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 1. Little interest or pleasure in doing things: not at all 2. Feeling down, depressed, or hopeless: not at all Total score: 0 PHQ-9 3. Trouble falling or staying asleep, or sleeping too much: Not at all 4. Feeling tired or having little energy: Not at all 5. Poor appetite or overeating: Not at all 6. Feeling bad about yourself - or that you are a failure or have let yourself or your family down: Not at all 7. Trouble concentrating on things, such as reading the newspaper or watching television: Not at all 8. Moving or speaking so slowly that other people could have noticed? - Or the opposite - being so fidgety or restless that you have been moving around a lot more than usual: not at all 9. Thoughts that you would be better off or of hurting yourself in some way: Not at all Total score: 0 If you checked off any problems, how difficult have these problems made it for you to do your work, take care of things at home, or get along with other people?: not difficult at all Source: Developed by Drs. Irving Rothman, Flor Fair, Og Lee and colleagues, with an educational minh from [employer]. Depression screen completed yes Social History Living Situation History Marital Status: Single Lives With: Children Housing: House Tobacco History Smoking Status: Never smoker Second Hand Smoke Exposure: No Alcohol History Alcohol Intake: Never Domestic Abuse History Do You Feel Safe at Home: Yes Care OB Visit Log OB Flowsheet Initial Weight: Not Recorded Date -?-?-?-?-?-?-?-?-?-?-?-?- EGA Weight BP Alb Glu CTX Pres Fundal ht FHR Mov Dilation Station Effacement Hx Notes Visit Note 10/24/24 -?-?-?-?-?-?-?-?-?-?-?-?- 32w 6d 74.843 kg 119/80 absent cephalic 33 145 active 19-year-old 3 para 1 for OBI. Patient is a transfer from Dr. West's office with records. Her last period March 24, 2025. This gave a due date December 30, 2024. She had poor dates her first ultrasound was July 25, 2024 at 19 weeks 6 and this change her due date to December 13, 2024. Patient denies social habits. Denies surgery. Denies chronic illness. She denies leaking fluid denies bleeding denies contractions. Reports movement. Patient is O+, antibody screen negative, RPR nonreactive, rubella NI , hepatitis B negative, hep C negative, HIV negative, GC and Chlamydia were negative. Her 1 hour was negative. Her drug screen was normal. And her A1c was 5.3. NIPT AFP and carrier screens all negative. Sc hedule anatomy scan today. Patient declined Tdap. Discussed labor precautions. Kick counts twice daily. Increase fluids. Return in 2 weeks for GBS. And will do Pap 6 weeks 11/10/24 -?-?-?-?-?-?-?-?-?-?-?-?- 35w 2d 77.167 kg 124/72 absent cephalic 35 163 active No OB complaints. Fetus moving. Denies leaking, denies bleeding, denies contractions. GBS today. Discussed movement. Discussed kick count to be done twice a day. Increase fluids. Discussed signs symptoms of labor and ER precautions. Return in a week for OB check 11/22/24 -?-?-?-?-?-?-?-?-?-?-?-?- 37w 0d 78.131 kg 123/80 absent cephalic 36 156 active Doing well. No OB complaints. Reports good movement. Denies leaking, denies contractions, denies bleeding. Discussed posit sofie GBS and treatment. Discussed labor pop precautions. Discussed kick count twice a day. Increase fluids. Return in a week OB check 11/27/24 -?-?-?-?-?-?-?-?-?-?-?-?- 37w 5d 78.698 kg 131/84 occasional cephalic 37 140 active Denies PIH complaints. Reports good movement. Denies leaking, denies bleeding, increased pressure and occasional contraction, ua dip neg for protien,blood, nitrites Discussed PIH si gns and symptoms. Discussed kick count twice a day. Increase fluids. No salt. Patient to labor and delivery for PIH workup and return in a week for OB check 12/05/24 -?-?-?-?-?-?-?-?-?-?-?-?- 38w 6d 78.642 kg 124/83 occasional cephalic 38 130 active Occasional contraction. Increased pressure. Reports good movement. Denies leaking or bleeding. Patient is GBS positive. Discussed GBS positive. Discussed labor precautions and kick count. Increase fluids. Continue prenatals. Return a week OB check 12/18/24 -?-?-?-?-?-?-?-?-?-?-?-?- 40w 5d 80.002 kg 131/84 occasional cephalic 39 130 active Occasional contractions. Increased pressure. Denies leaking fluid. Mom reports good movement. Patient would like to have induction labor Discussed kick count twice a day. Reviewed labor precautions and signs symptoms of labor. Patient was sent to labor and delivery for NST BPP and complete OB today and I will stacey edule her for induction. Reviewed induction with patient ANUM Calculator Estimated Delivery Date Method Current WG Current Estimate 12/13/24 Ultrasound #1 40w 5d Other Estimates 12/29/24 LMP (Certain) 38w 3d 12/14/24 Ultrasound #2 40w 4d Notes Visit Date: 11/27/24 Last Updated by: Joanne Santiago CNM sono 10/09/24: 30w4: edc: 12/14/24 Visit Date: 11/22/24 Last Updated by: Joanne Santiago CNM GBS+on 11/22 Visit Date: 10/24/24 Last Updated by: Joanne Santiago CNM 19 yo . LMP 03/24/24. EDC12/30/24. OB sono; 07/25/24: 19w6. EDC: 12/13/24. wrong dates. O+,abs-, rpr;;nr, rub NI, hbsag-, hiv-, hc-, gc/ct-, 1hr gtt-, UT-, NIPT/AFP and carrier screen-, Office Procedures OB Clinic LOC & Office Proc's Nursing/Assessment Patient Status: Established Patient OB Clinic Nursing Assessment: Medication Reconciliation, Update PMH in EMR and Vital Signs OB Clinic Coordination of Care: Education Complex Pt/Fam, Consent,records obtained, informed consent, Lab and Imaging orders and Staff clarify orders Special Needs: Heart tones Established Patient Charge Established Patient Point Assignment: 110 Established Patient Point Charge: EP Level 3 (80-115) Assessment & Plan Diagnosis / Problem List (1) Encounter for supervision of high risk in third trimester, antepartum: Status: Acute Plan Patient scheduled for induction for today. Patient was sent to labor and delivery for NST BPP and complete OB. If staffing allows keep patient in induced. Discussed kick count twice a day and danger signs symptoms. Additional Plan Follow Up: 1 Week (OBC)
== END 2024-12-18 09:53 | disposition home or self-care (01) ==
LOC: HODSOBC 09:04
PROVIDERS: Supervising Provider Advanced Practice Midwife; Visit Provider Advanced Practice Midwife
DX: O09.893 Supervision of other high risk pregnancies, third trimester (principal); O48.0 Post-term pregnancy; Z3A.40 40 weeks gestation of pregnancy
CPT/HCPCS: 99213; G0463

== ENCOUNTER 2024-12-18 14:58 | Inpatient (IN) | payer MEDICAID, SELFPAY ==
[2024-12-18] VITALS (76 sets, daily range): BP systolic 110–144; BP diastolic 68–94; PULSE 55–94; RESP 18–97; TEMP 36.7–36.9; O2SAT 97–100; BMI 34.7
--- NOTE | 2024-12-18 13:06 | XR_ITS ---
Examination: Complete OB ultrasound greater than 14 weeks Date and time of exam: December 18, 2024 1334 hours INDICATIONS: -induced hypertension diagnosis Findings: Viable intrauterine single fetus with single amniotic sac presentation cephalic Cardiac motion 152 BPM Placenta anterior grade 3 Umbilical cord insertion 3 vessel seen Amniotic fluid index 5.7 cm Cervix 4.2 cm Ovaries obscured by bowel gas. Composite estimated gestational age based on BPD, head circumference, abdominal circumference, femur length is 36 weeks 0 days Estimated weight 2783 g. Survey of intracranial anatomy, spinal anatomy, abdominal anatomy, four-chamber heart performed with no abnormalities identified. Impression: Viable intrauterine gestation cephalic presentation.
--- NOTE | 2024-12-18 13:06 | XR_ITS ---
Examination: Biophysical profile, ultrasound Date and time of exam: December 18, 2024 1348 hours INDICATIONS: -induced hypertension today Technique: Multiple transabdominal sonographic images of the pelvis abdomen obtained. Attention is directed to the breathing movement, gross body movement, amniotic fluid volume and tone. Findings: Amniotic fluid index 6.1 cm Total biophysical profile is 8 of 8. breathing movement is 2. Gross body movement is 2. tone is 2. Qualitative amniotic fluid volume is 2 Impression: Biophysical profile is 8 of 8.
[2024-12-18 14:03] LABS: Basophils # (Auto) 0.0 Thou/mm3 (0.0-0.2); Basophils % (Auto) 0 % (0-2.5); Eosinophils # (Auto) 0.0 Thou/mm3 (0.0-0.5); Eosinophils % (Auto) 0 % (0-10); Hematocrit 34.9 % (36.0-46.0); Hemoglobin 11.9 g/dL (12.0-16.0); Immature Granulocytes Auto 0.06 Thou/mm3 (0.00-0.00); Lymphocytes # (Auto) 1.6 Thou/mm3 (1.0-4.8); Lymphocytes % (Auto) 17 % (10-50); Mean Corpuscular HGB Conc 34.1 g/dl (31.0-37.0); Mean Corpuscular Hemoglobin 28.3 pg (25.0-35.0); Mean Corpuscular Volume 83 fL (80-100); Monocytes # (Auto) 0.5 Thou/mm3 (0.0-0.8); Monocytes % (Auto) 6 % (0-12); Neutrophils # (Auto) 6.8 Thou/mm3 (1.8-7.7); Neutrophils % (Auto) 76 % (37-80); Nucleated Red Blood Cell # 0.00 Thou/mm3 (0.00-0.00); Nucleated Red Blood Cell % 0 /100 WBC (0); Platelet Count 187 Thou/mm3 (140-440); RDW Standard Deviation 41.7 fL (36.4-46.3); Red Blood Count 4.20 Miln/mm3 (4.00-5.20); White Blood Count 8.9 Thou/mm3 (3.6-11.0)
[2024-12-18 14:25] LABS: Alanine Aminotransferase 24 U/L (10-49); Albumin, Serum 3.8 gm/dL (3.5-5.0); Albumin/Globulin Ratio 1.8 (1.2-2.2); Alkaline Phosphatase 249 U/L (46-116); Anion Gap 12 (7-16); Aspartate Amino Transferase 99 U/L (0-34); BUN/Creatinine Ratio 9 Ratio (12-20); Bilirubin,Total 0.3 mg/dL (0.3-1.2); Blood Urea Nitrogen 7 mg/dL (9-23); Calcium 9.2 mg/dL (8.3-10.6); Calcium (Corrected) 9.4 mg/dL (8.5-10.1); Carbon Dioxide 22.4 mMol/L (20.0-31.0); Chloride 104 mMol/L (98-107); Creatinine (Component) 0.8 mg/dL (0.6-1.3); Estimated Creatinine Clearance 104.7 mL/min (>60); Globulin 2.1 gm/dL (2.3-3.5); Glucose 106 mg/dL (74-106); LDH (Lactate Dehydrogenase) 209 U/L (120-246); Osmolality,Calculated 273 (275-295); Potassium 4.1 mMol/L (3.4-5.1); Sodium 138 mMol/L (136-145); Total Protein 5.9 gm/dL (5.7-8.2); Uric Acid 6.1 mg/dL (3.1-7.8); eGFR > 60 See Note
[2024-12-18 14:58] LABS: Collection Type, Urine Clean Catch
[2024-12-18 15:00] LABS: Fibrinogen 576 mg/dL (175-375); INR 0.9 (0.9-1.3); Partial Thromboplastin Time 25.2 Seconds (22.0-36.0); Prothrombin Time 9.9 Seconds (9.0-12.2)
[2024-12-18 15:15] LABS: Bacteria,Urine Rare; Bilirubin,Urine Negative (Negative); Blood,Urine 1+ (Negative); Clarity,Urine Clear (Clear/Hazy); Color,Urine Yellow (Lt Yel-Yel); Glucose, Urine Negative (Negative); Ketones,Urine Negative (Negative); Leukocyte Esterase,Urine Positive (Negative); Nitrite,Urine Negative (Negative); PH,Urine 6.5 (5.0-7.0); Protein,Urine Trace (Neg - Trace); RBC,Urine 1 /hpf (0-3); Specific Gravity,Urine 1.019 (1.001-1.035); Squamous Epithelial Cell,Urine 3 /hpf (0-5); Urobilinogen,Urine 2.0 mg/dL (0.0-1.0); WBC,Urine 5 /hpf (0-5)
[2024-12-18 15:19] LABS: Creatinine,Random Urine 122 mg/dL (30-125); Protein Total, Random Urine 35 mg/dL (1-14)
[2024-12-18 16:52] LABS: Basophils # (Auto) 0.0 Thou/mm3 (0.0-0.2); Basophils % (Auto) 0 % (0-2.5); Eosinophils # (Auto) 0.0 Thou/mm3 (0.0-0.5); Eosinophils % (Auto) 0 % (0-10); Hematocrit 35.9 % (36.0-46.0); Hemoglobin 12.4 g/dL (12.0-16.0); Immature Granulocytes Auto 0.08 Thou/mm3 (0.00-0.00); Lymphocytes # (Auto) 2.0 Thou/mm3 (1.0-4.8); Lymphocytes % (Auto) 19 % (10-50); Mean Corpuscular HGB Conc 34.5 g/dl (31.0-37.0); Mean Corpuscular Hemoglobin 28.7 pg (25.0-35.0); Mean Corpuscular Volume 83 fL (80-100); Monocytes # (Auto) 0.7 Thou/mm3 (0.0-0.8); Monocytes % (Auto) 6 % (0-12); Neutrophils # (Auto) 7.8 Thou/mm3 (1.8-7.7); Neutrophils % (Auto) 74 % (37-80); Nucleated Red Blood Cell # 0.00 Thou/mm3 (0.00-0.00); Nucleated Red Blood Cell % 0 /100 WBC (0); Platelet Count 188 Thou/mm3 (140-440); RDW Standard Deviation 41.5 fL (36.4-46.3); Red Blood Count 4.32 Miln/mm3 (4.00-5.20); White Blood Count 10.6 Thou/mm3 (3.6-11.0)
[2024-12-18] MEDS: RINGERS LACTATED 1000 ML 1,000 ML 100 ML IV (16:59)
[2024-12-18] MEDS: Ampicillin Inj 2,000 MG in SODIUM CHLORIDE 0.9% (POP) 100 ML 200 MG IV (17:01)
[2024-12-18 17:30] LABS: Syphilis Nonreactive (Nonreactive)
[2024-12-18] MEDS: Ampicillin Inj 1,000 MG in SODIUM CHLORIDE 0.9% (Popper) 50 ML 50 MG IV (20:51)
[2024-12-18] MEDS: fentaNYL CIT INJ 50 mCg/ML AMP 2ML 100 MCG IVP (20:51)
[2024-12-19] VITALS (90 sets, daily range): BP systolic 103–191; BP diastolic 56–93; PULSE 54–90; RESP 16–20; TEMP 36.7–37.2; O2SAT 84–100
[2024-12-19] MEDS: Ampicillin Inj 1,000 MG in SODIUM CHLORIDE 0.9% (Popper) 50 ML 50 MG IV (01:36)
[2024-12-19] MEDS: RINGERS LACTATED 1000 ML 1,000 ML 100 ML IV (01:39)
[2024-12-19] MEDS: fentaNYL CIT INJ 50 mCg/ML AMP 2ML 100 MCG IVP (02:02)
--- NOTE | 2024-12-19 02:32 | PD.LDHP ---
Documentation for date of: 12/19/24 OB Labor/Induct. HPI History of Present Illness Chief complaint: induction : 3 Para: 1 Term pregnancies: 1 pregnancies: 0 Living children: 1 History of Abortions: Spontaneous and Elective: 1 History of Vaginal deliveries: 1 History of sections: No History of : No Date of last menstrual period: 03/24/25 ANUM: 12/13/24 Gestational Age (weeks): 40 Gestational Age (days): 5 Gestational age based on last menstrual period: -13 Indication for induction: post dates History of present illness: 19-year-old healthy 3 para 1 admit to labor and delivery for induction of labor. Patient has been followed Living [facility] with this . And was transferred care to [facility] OB clinic at 35 weeks with records. Patient denies any existence of chronic medical problems. Denies social habits. Denies surgery. Last. March 24, 2024. This gave due date December 30, 2024. Patient has history of irregular periods and poor dates. First ultrasound July 25, 2024 patient was 19 weeks 6 and this changed to EDC to December 13, 2024. She also had a 30-week ultrasound to confirm dates. Patient so far had not had his problems with . O+, antibody screen negative, RPR nonreactive, rubella immune, hepatitis B negative, HIV negative, hep C negative, GC and Chlamydia were negative. Her 1 hour was normal. NIPT AFP and carrier screens all negative. Denies leaking, bleeding reports movement. Patient had NST and BPP today they are both reactive. But her ANG was 5 so patient was kept for induction History of Present Dating criteria: LMP confirmed by 2nd trimester US Adequate Care: Yes Ultrasounds: normal mid trimester US Obstetrical complications: none Medical complications: none Labs Labs: Positive: Rubella Titre and Group Beta Strep, Negative: RPR, Hepatitis B, HIV, Chlamydia and Gonorrhea and Unknown: Herpes Type 1, Herpes Type 2 and Covid-19 Past Medical History Surgical History SURGICAL: Negative Section Meds Home Medications and Allergies Home Medications ?Medication ?Instructions ?Recorded ?Confirmed ?Type vits no.126-ferrous fum 1 tab PO .QD 10/24/24 12/18/24 History 28 mg iron-folic acid 800 mcg tablet (Classic ) Allergies Allergy/AdvReac Type Severity Reaction Status Date / Time No Known Allergies Allergy Verified 12/18/24 13:49 OB Exam Physical Exam Vital signs: Temp Pulse Resp BP Pulse Ox O2 Del Method 98.5 F 54 L 18 148/71 H 100 Room Air 12/18/24 20:00 12/19/24 00:42 12/18/24 20:00 12/19/24 00:42 12/19/24 02:26 12/18/24 20:00 Narrative: Alert and oriented. Normal heart rate and rhythm. Lungs clear no wheezes. Gravid abdomen. Gynecoid pelvis. Estimated weight 7 pounds. Vaginal examination was 60/3/-3, posterior and soft. vertex. intact, irreg uc, BOW intact, category 1, accels and moderate variability Detailed Labor and Delivery Exam Dilation (cm): 3 Effacement (%): 60 Cervix position: posterior station: -3 Consistency: soft Presentation: Vertex Cervical ripeness score: 6 Membranes: intact Baseline heart rate: 145 monitor accelerations: 15x15 monitor decelerations: None detention variability: Moderate (11-25) Contraction frequency (min): occ Contraction duration (sec): 30 Contraction intensity: Mild OB Results Labs 12/18/24 15:50 12/18/24 13:26 Labs: Short CBC 12/18/24 12/18/24 Range/Units 13:26 15:50 WBC 8.9 10.6 (3.6-11.0) Thou/mm3 Hgb 11.9 L 12.4 (12.0-16.0) g/dL Hct 34.9 L 35.9 L (36.0-46.0) % Plt Count 187 188 (140-440) Thou/mm3 BMP 12/18/24 13:26 Sodium 138 Potassium 4.1 Chloride 104 Carbon Dioxide 22.4 BUN 7 L Creatinine 0.8 Glucose 106 Calcium 9.2 Liver Function 12/18/24 Range/Units 13:26 Total Bilirubin 0.3 (0.3-1.2) mg/dL AST 99 H (0-34) U/L ALT 24 (10-49) U/L Alkaline Phosphatase 249 H (46-116) U/L Albumin 3.8 (3.5-5.0) gm/dL Urine 12/18/24 Range/Units 12:50 Urine Color Yellow (Lt Yel-Yel) Urine Clarity Clear (Clear/Hazy) Urine pH 6.5 (5.0-7.0) Ur Specific [place] 1.019 (1.001-1.035) Urine Protein Trace (Neg - Trace) Urine Glucose (UA) Negative (Negative)
--- NOTE | 2024-12-19 04:37 | PD.LDPN ---
Documentation for date of: 12/19/24 OB Labor Progress Note Pain Control Pain control: epidural Pelvic Exam Dilation (cm): 9 Effacement (%): 80 station: -1 Amniotic membrane status: Ruptured Contractions Monitor mode: External Contraction frequency: occ Contraction intensity: Moderate Status status: Category l Assessment and Plan Plan OB labor note: continuous present management CNM Management MD Consulted (describe details below): Yes
[2024-12-19] MEDS: MINERAL OIL 30 ML UDC TOP (05:10)
[2024-12-19] MEDS: OXYTOCIN in NS 20 units 20 UNIT/1,000 ML BAG 125 UNIT IV (05:15)
[2024-12-19] MEDS: OXYTOCIN INJ 10 UNIT/ML VIAL IM (05:17)
--- NOTE | 2024-12-19 05:30 | OBDSUM_ITS ---
Data (Mireles) Data Hx Section: No : 3 Term: 1 : 0 Livin Abortions: Spontaneous & Theraputic: 1 Delivery Data (Mireles) Labor Data Initiation of labor: Induction Induction/Augmentation Agent: Cytotec-PO ROM date: 12/19/24 ROM time: 01:47 Amniotic membrane rupture type: Artificial Amniotic fluid description: Clear Delivery Data EDC: 12/13/24 EDC calculated by:: LMP/early US confirmation Date of arrival to unit: 12/18/24 Time of arrival to unit: 14:58 Onset of labor date: 12/18/24 Onset of labor time: 20:45 Complete dilation date: 12/19/24 Complete dilation time: 04:34 [place] delivery date: 12/19/24 [place] delivery time: 05:12 Gestational age (weeks): 40 Gestational age (days): 5 Placenta delivery date: 12/19/24 Placenta delivery time: 05:15 Stage 1 total time: Labor - Stage 1 Duration 7 hours and 49 minutes Delivered by: RAO Delivery nurse: CAPRI Calabrese Neworn nurse: CAPRI Sen Concrete Stone Finishing Supervisor at delivery: No Support person(s) at delivery: FOB AT DELIVERY Delivery Method Delivery method: Normal Vaginal Delivery Presentation: Vertex position: OA Anesthesia Type Anesthesia Type: None Delivery Room Medications Delivery room medications given: fentanyl x2 Delivery room medications: Pitocin 10 u IM, Pitocin 20 u IV, Cytotec 800 VA and other (TXA x2) Placenta Placenta delivery description: Spontaneous (inspected, intact) Cord blood sent to lab: Yes cord blood collection: Cord Blood Type Episiotomy Episiotomy description: None (intact) EBL Estimated blood loss (ml): 400 Umbilical Cord cord description: 3 Vessels (short cord) [place] Data (Mrieles) Data order: 1 's gender: Female Identification band number: [id number] weight (gms): 2840 g Weight (pounds): 6 lbs and 4.2 ozs [place] length: 48.26 cm 1 minute: 8 5 minutes: 9 10 minutes: 9
[2024-12-19] MEDS: BENZO/LANO/ALOE (Dermoplast) 60 GM CAN 1 SPRAY TOP (05:32)
[2024-12-19] MEDS: TRANEXAMIC ACID 1,000 MG IVPB 1,000 MG/100 ML BAG 200 MG IV ×2 (05:51→06:48)
[2024-12-19] MEDS: DOCUSATE SOD 100 MG CAPSULE PO ×2 (09:04→21:14)
[2024-12-19] MEDS: IBUPROFEN TAB 400 MG TABLET 800 MG PO (09:36)
[2024-12-19 14:19] LABS: Basophils # (Auto) 0.0 Thou/mm3 (0.0-0.2); Basophils % (Auto) 0 % (0-2.5); Eosinophils # (Auto) 0.0 Thou/mm3 (0.0-0.5); Eosinophils % (Auto) 0 % (0-10); Hematocrit 31.9 % (36.0-46.0); Hemoglobin 11.0 g/dL (12.0-16.0); Immature Granulocytes Auto 0.06 Thou/mm3 (0.00-0.00); Lymphocytes # (Auto) 1.4 Thou/mm3 (1.0-4.8); Lymphocytes % (Auto) 11 % (10-50); Mean Corpuscular HGB Conc 34.5 g/dl (31.0-37.0); Mean Corpuscular Hemoglobin 28.5 pg (25.0-35.0); Mean Corpuscular Volume 83 fL (80-100); Monocytes # (Auto) 0.7 Thou/mm3 (0.0-0.8); Monocytes % (Auto) 5 % (0-12); Neutrophils # (Auto) 10.5 Thou/mm3 (1.8-7.7); Neutrophils % (Auto) 83 % (37-80); Nucleated Red Blood Cell # 0.00 Thou/mm3 (0.00-0.00); Nucleated Red Blood Cell % 0 /100 WBC (0); Platelet Count 191 Thou/mm3 (140-440); RDW Standard Deviation 41.2 fL (36.4-46.3); Red Blood Count 3.86 Miln/mm3 (4.00-5.20); White Blood Count 12.6 Thou/mm3 (3.6-11.0)
[2024-12-20] MEDS: DIPHTH,PERTUSS(ACELL),TET VAC 0.5 ML SYR- ADULT IMi (00:24)
[2024-12-20 05:00] VITALS: BP 120/76; PULSE 68; RESP 18; TEMP 36.8; O2SAT 98
--- NOTE | 2024-12-20 07:32 | PD.LDPPPRG ---
Subjective Subjective Interval history: No complaints of pain. No dizziness. Bonding and breast-feeding Exam Vital Signs Temp Pulse Resp BP Pulse Ox O2 Del Method 98.2 F 68 18 120/76 98 Room Air 12/20/24 05:00 12/20/24 05:00 12/20/24 05:00 12/20/24 05:00 12/20/24 05:00 12/20/24 05:00 Narrative Exam Vital signs stable afebrile. Breasts are soft. Fundus firm below the umbilicus. Euthyroid. Small lochia. Perineum well-approximated. No swelling. Negative Homans' sign. 2+ DTRs Objective Labs 12/19/24 14:07 12/18/24 13:26 Labs: Laboratory Results - last 24 hr 12/19/24 14:07 WBC 12.6 H RBC 3.86 L Hgb 11.0 L Hct 31.9 L MCV 83 MCH 28.5 MCHC 34.5 RDW Std Deviation 41.2 Plt Count 191 Neut % (Auto) 83 H Lymph % (Auto) 11 Hanson % (Auto) 5 Eos % (Auto) 0 Baso % (Auto) 0 Neut # (Auto) 10.5 H Lymph # (Auto) 1.4 Hanson # (Auto) 0.7 Eos # (Auto) 0.0 Baso # (Auto) 0.0 Immature Gran # (Auto) 0.06 H Absolute Nucleated RBC 0.00 Immature Gran % 1 H Nucleated RBC % 0 Assessment & Plan Assessment Comment Assessment comment: 24 hr pp Plan Comment Plan Comment: Discharge home with baby. Continue vitamins and iron. Tylenol ibuprofen for pain. Discussed danger signs and symptoms and ER precautions. Discussed signs and symptoms of infection. Discussed wound care and comfort measures. Return in 3 weeks Time Spent With Patient Time: Total time spent is greater than 50% in coordination of care (as documented) at patient's floor/unit and/or counseling patient:
--- NOTE | 2024-12-20 07:34 | ESDS_ITS ---
DS: Providers Provider Date of admission: 12/18/24 14:58 Primary care physician: Physician No Primary/Family Admitting Provider: Joanne Santiago CNM Attending Provider on Admission: Joanne Santiago CNM Consults: 12/19/24 05:46 Referral Routine Comment: Attending Provider on DC: Joanne Santiago CNM Discharging Provider: Joanne Santiago CNM DS: Diagnosis Problem List Completed Was Problem List Reviewed/Reconciled?: Yes Summary/Hosp Course Brief History: 19-year-old healthy 3 para 1 admit to labor and delivery for induction of labor. Patient has been followed Living [facility] with this . And was transferred care to [facility] OB clinic at 35 weeks with records. Patient denies any existence of chronic medical problems. Denies social habits. Denies surgery. Last. March 24, 2024. This gave due date December 30, 2024. Patient has history of irregular periods and poor dates. First ultrasound July 25, 2024 patient was 19 weeks 6 and this changed to EDC to December 13, 2024. She also had a 30-week ultrasound to confirm dates. Patient so far had not had his problems with . O+, antibody screen negative, RPR nonreactive, rubella immune, hepatitis B negative, HIV negative, hep C negative, GC and Chlamydia were negative. Her 1 hour was normal. NIPT AFP and carrier screens all negative. Denies leaking, bleeding reports movement. Patient had NST and BPP today they are both reactive. But her ANG was 5 so patient was kept for induction Peripartum Data Delivery Method: Normal Vaginal Delivery Episiotomy Description: None (intact) Laceration Description: no complications: none Time Spent with Patient Time attestation: Total time spent providing and/or coordinating discharge services: Exam Vital Signs Temp Pulse Resp BP Pulse Ox O2 Del Method 98.2 F 68 18 120/76 98 Room Air 12/20/24 05:00 12/20/24 05:00 12/20/24 05:00 12/20/24 05:00 12/20/24 05:00 12/20/24 05:00 Discharge Plan Plan Patient Disposition: HOME (Self Care) Patient condition on transfer: Stable Prescriptions/Referrals Prescriptions/Med Rec: No Action Classic 28 mg iron- 800 mcg tablet 1 tab PO .QD Referrals: No Primary/Family,Physician [Primary Care Provider] Patient/Caregiver Discharge Instructions Discharge Activity: resume usual activities Print Language: Frisian Activity Restrictions/Additional Instructions: Discharge home with baby. Continue vitamins and iron. Tylenol or Profen for pain. Danger signs symptoms reviewed. Discussed ER precautions and signs and symptoms of infection. Discussed wound care. And will return in 3 weeks visit Stand Alone Forms: Cynthia Award Info., Patient Portal Info Letter Discharge Order Discharge Orders: Discharge (Routine); Ordered 12/20/24 Ordered By: Joanne Santiago Planned Discharge Date 12/20/24
[2024-12-20 08:00] VITALS: BP 118/77; PULSE 62; RESP 17; TEMP 36.8; O2SAT 99
[2024-12-20] MEDS: DOCUSATE SOD 100 MG CAPSULE PO (08:18)
== END 2024-12-20 17:00 | disposition home or self-care (01) | DRG 560 ==
LOC: S4S1 15:13 → S4SX 15:13 → S4NX 12-19 07:52
PROVIDERS: Admitting Provider Advanced Practice Midwife; Referring Provider Advanced Practice Midwife; Visit Provider Advanced Practice Midwife
DX: O48.0 Post-term pregnancy (principal); Z37.0 Single live birth; Z3A.40 40 weeks gestation of pregnancy; O69.3XX0 Labor and delivery complicated by short cord, not applicable or unspecified
CPT/HCPCS: 36415; 59025; 76805; 76819; 80053; 81001; 82570; 83615; 84156; 84550; 85025; 85384; 85610; 85730; 86780; 86850; 86900; 86901; 87086; 90715; J0290; J2590; J2795; J3010; J3490; J7050; J7120; S0191; A9270

== ENCOUNTER 2025-01-17 12:59 | Outpatient (AMB) | payer MEDICAID, SELFPAY ==
--- NOTE | 2025-01-17 13:03 | AMBOBPPN_ITS ---
Vital Signs 01/17/25 13:10 Height 1.5 m Height Method Stated Weight 73.482 kg Weight Measurement Method Standing Scale BMI 32.6 BP 118/78 Blood Pressure Source Automatic Cuff Blood Pressure Location Left Upper Arm Position Sitting Respiration 14 Pulse 65 Pulse Source Monitor Temp 97.5 F Temp Source Oral Pulse Oximetry (%) 97 Oxygen Delivery Method Room Air Allergies/Home Meds Allergies & Medications Allergies No Known Allergies Allergy (Verified 01/17/25 13:11) Medication Reconciliation vits no.126-ferrous fum 28 mg iron-folic acid 800 mcg tablet (Classic ) 1 tab PO .QD 10/24/24 [History Confirmed 01/17/25] condoms - male #24 ea 01/17/25 [Rx] norethindrone (contraceptive) 0.35 mg tablet (Paul) 0.35 mg PO QDAY #84 tabs 01/17/25 [Rx] Intake Visit Data Collection New Patient or Established: Established Patient (seen at [facility] within 3 years) Reason for Visit:: Seen by Clinical Staff ONLY (RN/MA): No Office Machine Service Supervisor Required: No Do You Feel Safe at Home: Yes Authorities Contacted: N/A PCP or OBGYN visit in last 3 months: Yes Hx Now: No Are you currently on any form of Control: No Pain Present Currently: No Pain Scale Used: Guthrie-Jha/Numerical Pain scale:: 0 Smoking Status Smoking Status: Never smoker 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: Past Medical History Past Medical History: No Hx Neurological Disorders, No Hx Breast Cancer, No Hx Cardiac Disorders, No Hx Cancer, No Hx Blood Disorders, No Hx Gastrointestinal Disorders, No Hx Renal Disease, No Hx Diabetes Mellitus Type 1 and No Hx Diabetes Mellitus Type 2 Questionnaires Covid-19 Vaccine Questionnaire Has patient been vacinated for Covid-19 Have you been vacinated for Covid-19: Yes Social History Living Situation History Lives With: Children Housing: Apartment Tobacco History Smoking Status: Never smoker Second Hand Smoke Exposure: No Alcohol History Alcohol Intake: Never Domestic Abuse History Do You Feel Safe at Home: Yes EPDS - PP Depression Screening Wall Pospartum Depression Screen I have been able to laugh and see the funny side of things: (0) As much as I always could I have looked forward with enjoyment to things: (0) As much as I ever did I have blamed myself unnecessarily when things went wrong: (0) No, never I have been anxious or worried for no good reason: (0) No, not at all I have felt scared or panicky for no very good reason: (0) No, not at all Things have been getting on top of me: (0) No, I have been coping as well as ever I have been so unhappy that I have had difficulty sleeping: (0) No, not at all I have felt sad or miserable: (0) No, not at all I have been so unhappy that I have been crying: (0) No, never The thought of harming myself has occurred to me: (0) Never Total Score: EPDS Score: Referral is indicated for score of 9 or more, suicidal, or if provider believes patient is depressed regardless of score.: 0 EPDS completed yes Care OB Visit Log OB Flowsheet Initial Weight: Not Recorded Date -?-?-?-?-?-?-?-?-?-?-?-?- EGA Weight BP Alb Glu CTX Pres Fundal ht FHR Mov Dilation Station Effacement Hx Notes Visit Note 10/24/24 -?-?-?-?-?-?-?-?-?-?-?-?- 32w 6d 74.843 kg 119/80 absent cephalic 33 145 active 19-year-old 3 para 1 for OBI. Patient is a transfer from Dr. West's office with records. Her last period March 24, 2025. This gave a due date December 30, 2024. She had poor dates her first ultrasound was July 25, 2024 at 19 weeks 6 and this change her due date to December 13, 2024. Patient denies social habits. Denies surgery. Denies chronic illness. She denies leaking fluid denies bleeding denies contractions. Reports movement. Patient is O+, antibody screen negative, RPR nonreactive, rubella NI , hepatitis B negative, hep C negative, HIV negative, GC and Chlamydia were negative. Her 1 hour was negative. Her drug screen was normal. And her A1c was 5.3. NIPT AFP and carrier screens all negative. Sc hedule anatomy scan today. Patient declined Tdap. Discussed labor precautions. Kick counts twice daily. Increase fluids. Return in 2 weeks for GBS. And will do Pap 6 weeks 11/10/24 -?-?-?-?-?-?-?-?-?-?-?-?- 35w 2d 77.167 kg 124/72 absent cephalic 35 163 active No OB complaints. Fetus moving. Denies leaking, denies bleeding, denies contractions. GBS today. Discussed movement. Discussed kick count to be done twice a day. Increase fluids. Discussed signs symptoms of labor and ER precautions. Return in a week for OB check 11/22/24 -?-?-?-?-?-?-?-?-?-?-?-?- 37w 0d 78.131 kg 123/80 absent cephalic 36 156 active Doing well. No OB complaints. Reports good movement. Denies leaking, denies contractions, denies bleeding. Discussed posit sofie GBS and treatment. Discussed labor pop precautions. Discussed kick count twice a day. Increase fluids. Return in a week OB check 11/27/24 -?-?-?-?-?-?-?-?-?-?-?-?- 37w 5d 78.698 kg 131/84 occasional cephalic 37 140 active Denies PIH complaints. Reports good movement. Denies leaking, denies bleeding, increased pressure and occasional contraction, ua dip neg for protien,blood, nitrites Discussed PIH si gns and symptoms. Discussed kick count twice a day. Increase fluids. No salt. Patient to labor and delivery for PIH workup and return in a week for OB check 12/05/24 -?-?-?-?-?-?-?-?-?-?-?-?- 38w 6d 78.642 kg 124/83 occasional cephalic 38 130 active Occasional contraction. Increased pressure. Reports good movement. Denies leaking or bleeding. Patient is GBS positive. Discussed GBS positive. Discussed labor precautions and kick count. Increase fluids. Continue prenatals. Return a week OB check 12/18/24 -?-?-?-?-?-?-?-?-?-?-?-?- 40w 5d 80.002 kg 131/84 occasional cephalic 39 130 active Occasional contractions. Increased pressure. Denies leaking fluid. Mom reports good movement. Patient would like to have induction labor Discussed kick count twice a day. Reviewed labor precautions and signs symptoms of labor. Patient was sent to labor and delivery for NST BPP and complete OB today and I will schedule her for induction. Reviewed induction with patient ANUM Calculator Estimated Delivery Date Method Current WG Current Estimate 12/13/24 Ultrasound #1 45w 0d Other Estimates 12/29/24 LMP (Certain) 42w 5d 12/14/24 Ultrasound #2 44w 6d Notes Visit Date: 11/27/24 Last Updated by: Joanne Wilson CNM sono 10/09/24: 30w4: edc: 12/14/24 Visit Date: 11/22/24 Last Updated by: Joanne Wilson CNM GBS+on 11/22 Visit Date: 10/24/24 Last Updated by: Joanne Wilson CNM 19 yo . LMP 03/24/24. EDC12/30/24. OB sono; 07/25/24: 19w6. EDC: . wrong dates. O+,abs-, rpr;;nr, rub NI, hbsag-, hiv-, hc-, gc/ct-, 1hr gtt-, UT-, NIPT/AFP and carrier screen-, HPI Interval History: 19-year-old 3 para 2 for 6-week . Patient had a vaginal December. A baby girl weighing 6 pounds 4 ounces. She is breast- feeding. Patient is happy, no depression. Her other baby is in [place]. Father the baby is involved and helpful. Patient has limited support. Patient would like to start control pills. She is not sexually active. She does not have it.. No interval complaints Was or delivery considered high risk: No Delivery type: vaginal Was labor induced: no Gestational age at delivery (weeks): 38 Delivery date: 12/19/24 Delivering provider: ana wilson Delivery complications: No Is patient infant: Yes Is patient sexually active: No Contraception planned: mini pill Review of Systems Review of Systems ROS limited to current 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 complaints: Yes Exam Narrative Physical exam: Normal heart rate and rhythm. Lungs clear no wheezes. Abdomen is soft nontender. Uterus well involuted. Perineum is intact no lacerations. No swelling. Small lochia. Negative Homans' sign. 2+ DTRs. No edema no swelling. Breasts are soft General Limitations: no limitations General Appearance: alert, in no apparent distress, comfortable, cooperative, healthy appearing, well developed and well groomed Head Head exam: atraumatic, normocephalic and normal inspection Chest Chest inspection: Present normal inspection and symmetric chest wall rise Resp Respiratory exam: Present normal lung sounds bilaterally Card Cardiovascular exam: Present regular rate, normal rhythm and normal heart sounds Abdominal Abdominal exam: Present soft and normal bowel sounds Extremities Extremities exam: Present normal inspection and full ROM Psych Psychiatric exam: Present normal affect and normal mood Office Procedures OBC Clinic LOC & Office Proc's Nursing/Assessment Patient Status: Established Patient OB Clinic Nursing Assessment: Medication Reconciliation, Update PMH in EMR and Vital Signs OB Clinic Coordination of Care: Complex Care and Chronic Disease 1-5, Consent,records obtained, informed consent, Education Simp Pt/Fam, Lab and Imaging orders, Results/Orders obtained and Staff clarify orders Established Patient Charge Established Patient Point Assignment: 105 Established Patient Point Charge: EP Level 3 (80-115) Assessment & Plan Diagnosis / Problem List (1) Routine Follow-Up: (2) 6 weeks follow-up: Status: Acute Plan Micronor x 6. Start today. Reviewed method, side effects and effectiveness. Discussed compliance as well. Condoms for 2 weeks. I gave patient she does not condoms. Discussed safe sex. Continue with vitamins. Discussed diet and exercise. Discussed latching. And patient will be scheduled in a week for Pap Care Reviewed delivery summary and any complications: Yes Uterus involuted to: 3 below Perineal / incision healing noted: Yes Screened for depression: Yes Depression counseling provided: No Discussed family planning & contraception: Yes Contraception planned: mini pill Discussed and concerns (describe), provided support: Yes Referred to medical imaging specialist: No Counseled on good nutrition, hydration, and self care: Yes Chronic & current problems reconciled on problem list: Yes care discussed; questions answered: feeding Follow up: routine/prn Additional counseling & anticipatory guidance provided: paul x6, start today, condom x 24, schedule pap (FP) Tobacco Smoking Status: Never smoker
[2025-01-17 13:10] VITALS: BP 118/78; PULSE 65; RESP 14; TEMP 36.4; O2SAT 97; BMI 32.6
== END 2025-01-17 13:18 | disposition home or self-care (01) ==
LOC: HODSOBC 12:59
PROVIDERS: Supervising Provider Advanced Practice Midwife; Visit Provider Advanced Practice Midwife
DX: Z39.2 Encounter for routine postpartum follow-up (principal)
CPT/HCPCS: 99213; G0463

== ENCOUNTER 2025-02-05 13:23 | Outpatient (AMB) | payer MEDICAID, SELFPAY ==
[2025-02-05 13:36] VITALS: BP 119/83; PULSE 68; RESP 18; TEMP 36.2; O2SAT 97; BMI 32.3
--- NOTE | 2025-02-05 13:36 | AMB.GYNCLNOT ---
Vital Signs 02/05/25 13:36 Height 1.5 m Height Method Stated Weight 72.688 kg Weight Measurement Method Standing Scale BMI 32.3 BP 119/83 Blood Pressure Source Automatic Cuff Blood Pressure Location Right Upper Arm Position Sitting Respiration 18 Pulse 68 Pulse Source Monitor Temp 97.2 F Temp Source Temporal Artery Scan Pulse Oximetry (%) 97 Oxygen Delivery Method Room Air Allergies/Home Meds Allergies & Medications Allergies No Known Allergies Allergy (Verified 02/05/25 13:37) Medication Reconciliation vits no.126-ferrous fum 28 mg iron-folic acid 800 mcg tablet (Classic ) 1 tab PO .QD 10/24/24 [History Confirmed 02/05/25] norethindrone (contraceptive) 0.35 mg tablet (Hyacinth) 0.35 mg PO QDAY #84 tabs 01/17/25 [Rx Confirmed 02/05/25] Intake Visit Data Collection New Patient or Established: Established Patient (seen at [facility] within 3 years) Reason for Visit:: PAP SMEAR Seen by Clinical Staff ONLY (RN/MA): No Healthcare Applications Analyst Required: No Do You Feel Safe at Home: Yes Authorities Contacted: N/A PCP or OBGYN visit in last 3 months: Yes Date of Last PCP or OBGYN visit: 01/17/25 Hx Now: No Are you currently on any form of Control: Yes Pain Present Currently: No Pain Scale Used: Guthrie-Jha/Numerical Pain scale:: 0 Smoking Status Smoking Status: Never smoker Immunizations Flu Vaccine in the Last 12 Months: No Flu Vaccine Exclusion Criteria: No Exclusion Criteria 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 Menstrual regularity: regular Flow: normal Monthly: Yes How many days does period last: 4 Age at menarche: 11 Currently 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 1. Little interest or pleasure in doing things: not at all 2. Feeling down, depressed, or hopeless: not at all Total score: 0 PHQ-9 3. Trouble falling or staying asleep, or sleeping too much: Not at all 4. Feeling tired or having little energy: Not at all 5. Poor appetite or overeating: Not at all 6. Feeling bad about yourself - or that you are a failure or have let yourself or your family down: Not at all 7. Trouble concentrating on things, such as reading the newspaper or watching television: Not at all 8. Moving or speaking so slowly that other people could have noticed? - Or the opposite - being so fidgety or restless that you have been moving around a lot more than usual: not at all 9. Thoughts that you would be better off or of hurting yourself in some way: Not at all Total score: 0 If you checked off any problems, how difficult have these problems made it for you to do your work, take care of things at home, or get along with other people?: not difficult at all Source: Developed by Drs. Irving Rothman, Flor Fair, Og Lee and colleagues, with an educational minh from [employer]. Depression screen completed yes Social History Living Situation History Marital Status: Lives With: Children Housing: Apartment Tobacco History Smoking Status: Never smoker Second Hand Smoke Exposure: No Alcohol History Alcohol Intake: Never Domestic Abuse History Do You Feel Safe at Home: Yes History of Present Illness HPI Narrative 19-year-old 3 para 2 for well woman exam and counseled on Nexplanon. Patient is now 8 weeks . She had a normal vaginal December 29, 2024 the only complaint she has is that when she sneezes she loses urine. She is not sexually active and she is breast-feeding. Taking Juliet with good compliance. Denies social habits. Denies surgery. Denies chronic illness. Review of Systems Review of Systems Systems Reviewed: All systems reviewed, normal except as documented Exam Narrative Physical exam: Breasts are soft nontender symmetrical no masses. Abdomen soft nontender no masses. Perineum intact no lesions noted vagina pink clear discharge. Parous cervix. No inflammation, no lesions, uterus is normal size and shape mobile and nontender. No masses are felt. Office Procedures [facility] Clinic LOC & Office Proc's Nursing/Assessment Patient Status: Established Patient OB Clinic Nursing Assessment: Medication Reconciliation, Update PMH in EMR and Vital Signs OB Clinic Coordination of Care: Complex Care and Chronic Disease 1-5, Education Complex Pt/Fam, Consent,records obtained, informed consent, Lab and Imaging orders and Staff clarify orders Miscellaneous Interventions: Pelvic/Pap Smear Set up Established Patient Charge Established Patient Point Assignment: 125 Established Patient Point Charge: EP Level 4 (120-155) Assessment & Plan Diagnosis / Problem List (1) 6 weeks follow-up: Status: Acute (2) Encounter for Papanicolaou smear for cervical cancer screening: Status: Acute (3) Family planning, BCP ( control pills) maintenance: Status: Acute Plan: Pap today. I reviewed taking the minipill/Juliet discussed compliance and effectiveness. I reviewed Nexplanon insert. Reviewed method and side effects. 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 Made comfortable. Speculum was inserted with lubricant and cervix seen easily. Patient tolerated well no complaints of dizziness or and no or bleeding. No complaints of pain Papsmear completed: yes
== END 2025-02-05 13:58 | disposition home or self-care (01) ==
LOC: HODSOBC 13:23
PROVIDERS: Supervising Provider Advanced Practice Midwife; Visit Provider Advanced Practice Midwife
DX: Z39.2 Encounter for routine postpartum follow-up (principal); Z12.4 Encounter for screening for malignant neoplasm of cervix; Z30.41 Encounter for surveillance of contraceptive pills; Z30.017 Encounter for initial prescription of implantable subdermal contraceptive
CPT/HCPCS: 99214; G0463

== ENCOUNTER 2025-02-27 14:28 | Outpatient (AMB) | payer MEDICAID, SELFPAY ==
--- NOTE | 2025-02-27 14:57 | GYNCLNT_ITS ---
Vital Signs 02/27/25 14:58 Height 1.5 m Height Method Stated Weight 73.028 kg Weight Measurement Method Standing Scale BMI 32.4 BP 115/80 Blood Pressure Source Automatic Cuff Blood Pressure Location Left Upper Arm Position Sitting Respiration 16 Pulse 78 Pulse Source Monitor Temp 97.7 F Temp Source Oral Pulse Oximetry (%) 95 Oxygen Delivery Method Room Air Allergies/Home Meds Allergies & Medications Allergies No Known Allergies Allergy (Verified 02/27/25 14:58) Medication Reconciliation vits no.126-ferrous fum 28 mg iron-folic acid 800 mcg tablet (Classic ) 1 tab PO .QD 10/24/24 [History Confirmed 02/27/25] norethindrone (contraceptive) 0.35 mg tablet (Hyacinth) 0.35 mg PO QDAY #84 tabs 01/17/25 [Rx Confirmed 02/27/25] Intake Visit Data Collection New Patient or Established: Established Patient (seen at 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 Menstrual regularity: regular Flow: normal Monthly: Yes How many days does period last: 5 Age at menarche: 10 Currently sexually active: Yes 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 1. Little interest or pleasure in doing things: not at all 2. Feeling down, depressed, or hopeless: not at all Total score: 0 PHQ-9 3. Trouble falling or staying asleep, or sleeping too much: Not at all 4. Feeling tired or having little energy: Not at all 5. Poor appetite or overeating: Not at all 6. Feeling bad about yourself - or that you are a failure or have let yourself or your family down: Not at all 7. Trouble concentrating on things, such as reading the newspaper or watching television: Not at all 8. Moving or speaking so slowly that other people could have noticed? - Or the opposite - being so fidgety or restless that you have been moving around a lot more than usual: not at all 9. Thoughts that you would be better off or of hurting yourself in some way: Not at all Total score: 0 Source: Developed by Drs. Irving Rothman, Flor Fair, Og Lee and colleagues, with an educational minh from [employer]. Depression screen completed yes Social History Living Situation History Lives With: Children Housing: Apartment Tobacco History Smoking Status: Never smoker Second Hand Smoke Exposure: No Alcohol History Alcohol Intake: Never Domestic Abuse History Do You Feel Safe at Home: Yes History of Present Illness HPI Narrative 19-year-old G3, P2 for Nexplanon inserted. Patient is currently breast-feeding and taking Micronor. And she plans to change method. She is not having to. She denies any health issues ,. No FINANCIAL INSTITUTION TREASURER complaints. Denies surgeries. Denies social habits Review of Systems Review of Systems Systems Reviewed: All systems reviewed, normal except as documented Exam General Limitations: no limitations General Appearance: alert, in no apparent distress, comfortable, cooperative, healthy appearing, well developed and well groomed Head Head exam: atraumatic, normocephalic and normal inspection ENT ENT exam: Present normal exam, normal oropharynx and mucous membranes moist Chest Chest inspection: Present normal inspection and symmetric chest wall rise Resp Respiratory exam: Present normal lung sounds bilaterally Card Cardiovascular exam: Present regular rate, normal rhythm and normal heart sounds Abdominal Abdominal exam: Present soft and normal bowel sounds Results Objective Laboratory: negative preg test Office Procedures OBC Clinic LOC & Office Proc's Nursing/Assessment Patient Status: Established Patient OB Clinic Nursing Assessment: Medication Reconciliation, Update PMH in EMR and Vital Signs OB Clinic Coordination of Care: Complex Care and Chronic Disease 1-5, Consent,records obtained, informed consent, Education Simp Pt/Fam, 1 Ins Authorization, Lab and Imaging orders, Results/Orders obtained and Staff clarify orders Miscellaneous Interventions: Blood/Urine Collection Established Patient Charge Established Patient Point Assignment: 150 Established Patient Point Charge: EP Level 4 (120-155) Injection/Vaccine Admin SQ Im Injection: Yes In Clinic Bedside tests/procedures Bedside HCG: Yes In Clinic Procedures Insertion of Control other NOT IUD's: Yes (LOT #[id number] [facility] [id number] EXP 09/2026) Minor Surgical Procedure: Yes Results Urine HCG Urine HCG Negative Last Edit by Natividad Randall MA on 02/27/25 15:08 Assessment & Plan Diagnosis / Problem List (1) Nexplanon insertion: Status: Acute Plan Consent for Nexplanon insert. I reviewed Nexplanon plan method side effects and effectiveness with patient. And then we discussed Nexplanon insert procedure. Discussed wound care. Keep dry for 3 days. Discussed the need for condoms for 2 weeks. Continue prenatals. Discussed diet and exercise. 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 test was negative. Betadine cleanse insertion site in the left forearm. 2 cc of 1% lidocaine was injected at the site. Nexplanon capsule inserted via applicator. No bleeding at that time noted. Band-Aid and pressure dressing were applied. Patient tolerated the procedure well
[2025-02-27 14:58] VITALS: BP 115/80; PULSE 78; RESP 16; TEMP 36.5; O2SAT 95; BMI 32.4
== END 2025-02-27 15:23 | disposition home or self-care (01) ==
LOC: HODSOBC 14:28
PROVIDERS: Supervising Provider Advanced Practice Midwife; Visit Provider Advanced Practice Midwife
DX: Z30.017 Encounter for initial prescription of implantable subdermal contraceptive (principal); Z32.02 Encounter for pregnancy test, result negative
CPT/HCPCS: 11981; 58300; 81025; 96372; 99214; J3490; J7301; G0463